=== PATIENT | male | born 1990 | race Caucasian/White ===

== ENCOUNTER 2017-06-13 14:02 | Inpatient (IN) | payer MEDICAID, OTHER ==
[2017-06-13 14:19] VITALS: BMI 35.6
[2017-06-13 14:55] LABS: BASO # 0.1 K/uL (0.0-0.2); BASO % 1.2 % (0.0-2.0); EOS # 0.1 K/uL (0.0-0.7); EOS % 1.2 % (0.0-4.0); HEMATOCRIT 44.7 % (35.0-51.0); LYMPH # 2.4 K/uL (1.0-4.3); LYMPH % 28.5 % (20.0-40.0); MEAN CELL VOLUME 82.7 fL (80.0-94.0); MEAN CORPUSCULAR HEMOGLOBIN 26.7 pg (27.0-31.0); MEAN CORPUSCULAR HGB CONC 32.3 g/dL (33.0-37.0); MONO # 0.7 K/uL (0.0-0.8); NRBC % 0.1 % (0.0-2.0); RED CELL DISTRIBUTION WIDTH 14.9 % (11.5-14.5); WHITE BLOOD COUNT 8.3 K/uL (4.8-10.8)
[2017-06-13 15:01] LABS: RBC URINE < 1 /hpf (0-3); URINE BILIRUBIN NEGATIVE (NEGATIVE); URINE BLOOD NEGATIVE (NEGATIVE); URINE COLOR Straw (YELLOW); URINE GLUCOSE (UA) NORMAL (Normal); URINE KETONE NEGATIVE (NEGATIVE); URINE LEUKOCYTE ESTERASE NEG Leu/uL (Negative); URINE PROTEIN NEGATIVE (NEGATIVE); URINE UROBILINOGEN NORMAL mg/dL (0.2-1.0); WBC URINE 1 /hpf (0-5)
[2017-06-13 15:12] LABS: ALCOHOL SERUM < 10 mg/dl (0-10); ALKALINE PHOSPHATASE 64 U/L (38-126); ALT/SGPT 47 U/L (21-72); AST/SGOT 31 U/L (17-59); BILIRUBIN,TOTAL 0.6 mg/dL (0.2-1.3); BLOOD UREA NITROGEN 8 mg/dL (9-20); CALCIUM 8.4 mg/dl (8.6-10.4); CARBON DIOXIDE 25 mmol/L (22-30); CHLORIDE 106 mmol/L (98-107); GFR AFRICAN-AMERICAN > 60; GLUCOSE,RANDOM 72 mg/dL (75-110); POTASSIUM 3.6 mmol/L (3.6-5.2); SODIUM 136 mmol/L (132-148); TOTAL PROTEIN 8.4 g/dL (6.3-8.3)
[2017-06-13 15:15] LABS: ALB/GLOB RATIO 1.2 (1.0-2.1)
--- NOTE | 2017-06-13 16:06 | C.PDOC ---
History Of Present Illness Girish Benavides is a 26 year old male, with a past medical history of depression and HTN, who presents to the emergency department for suicidal ideation onset for x1 day. He reports feeling emotional after having spoken to his dad and state he took DXM and opiates. Patient tried to overdose last year admits to have made several attempts. He is currently taking lisinopril for his high blood pressure. He denies any nausea, vomit, fever, chills, chest pain or abdominal pain PMD: None provided. Time Seen by Provider: 06/13/17 14:25 Chief Complaint (Nursing): Psychiatric Evaluation History Per: Patient History/Exam Limitations: no limitations Onset/Duration Of Symptoms: Days (x1) Current Symptoms Are (Timing): Still Present Pain Scale Rating Of: 0 Associated Symptoms: Suicidal Thoughts, Suicidal Plan Past Medical History Reviewed: Historical Data, Nursing Documentation, Vital Signs Vital Signs: Last Vital Signs Temp 98 F 06/13/17 15:55 Pulse 87 06/13/17 15:55 Resp 20 06/13/17 15:55 BP 148/78 06/13/17 15:55 Pulse Ox 100 06/13/17 16:13 - Medical History PMH: Depression, HTN Surgical History: No Surg Hx Family History: States: Unknown Family Hx - Social History Hx Tobacco Use: Yes (heavy smoker >10 cigarettes daily) Hx Alcohol Use: Yes Hx Substance Use: Yes (cocaine) - Immunization History Hx Tetanus Toxoid Vaccination: Yes Hx Influenza Vaccination: Yes Hx Pneumococcal Vaccination: Yes Review Of Systems Except As Marked, All Systems Reviewed And Found Negative. Constitutional: Negative for: Fever, Chills Gastrointestinal: Negative for: Nausea, Vomiting, Abdominal Pain Psych: Positive for: Suicidal ideation Physical Exam - Physical Exam Skin: Normal Color, Warm, Dry Head: Atraumatic, Normacephalic Neck: Normal, Normal ROM, Supple Cardiovascular: Rhythm Regular Respiratory: Normal Breath Sounds, No Accessory Muscle Use Gastrointestinal/Abdominal: Soft, No Tenderness, No Guarding, No Rebound Extremity: Normal ROM, No Deformity, No Swelling Neurological/Psych: Oriented x3, Normal Speech ED Course And Treatment - Laboratory Results Result Diagrams: 06/13/17 14:52 06/13/17 14:52 O2 Sat by Pulse Oximetry: 100 (RA) Pulse Ox Interpretation: Normal Medical Decision Making Medical Decision Making: Initial Impression: Suicidal ideation Initial Plan: --1:1 Observation --AED Crisis evaluation Disposition Counseled Patient/Family Regarding: Studies Performed, Diagnosis - Disposition Disposition: HOSPITALIZED Disposition Time: 16:41 Condition: STABLE - Clinical Impression Clinical Impression: Depression Decision To Admit - Pt Status Changed To: Hospital Disposition Of: Inpatient - Admit Certification Admit to Inpatient:: After my assessment, the patient will require hospitalization for at least two midnights. This is because of the severity of symptoms shown, intensity of services needed, and/or the medical risk in this patient being treated as an outpatient. - InPatient: Physician Admission Certification: I certify that this patient requires 2 or more midnights of care for the following reason:: needs inpatient psych management - . Bed Request Type: Psychiatry Patient Diagnosis: Depression
--- NOTE | 2017-06-13 17:25 | PCM.BM ---
<Faviola Sawyer - Last Filed: 06/13/17 17:24> Treatment Plan Problems - Problems identified on initial assessmt Depression Date Initiated: 06/13/17 Time Initiated: 17:24 Assessment reference: NA Status: Active Suicidal Ideation Date Initiated: 06/13/17 Time Initiated: 17:24 Assessment reference: NA Status: Active Treatment assets and liabiliti Patient Assests: adapts well, cooperative, self-reliant, ADL independent, negotiates basic needs Patient Liabilities: live alone, substance abuse - Milieu Protocol Maintain good personal hygiene: daily Encourage regular showers, daily Remind patient to perform daily oral care Conduct patient checks and document Observation sheet: Q15 minutes Maintain personal safety: every shift Educate patient to report safety concerns to staff, every shift Monitor environment for contraband/sharps Medication safety: Monitor for expected outcome, potential side effects: every shift, Assess barriers to learning: every shift, Assess readiness for medication education: every shift <JuanMelly - Last Filed: 06/14/17 23:50> - Diagnosis (1) Depression Status: Acute Interventions: 06/14/17 23:49 * Assess/adjust medications daily and /or as needed * See patient on an individual basis 7x/week to assess symptoms of depression * Monitor for side effects & effectiveness of medications * (2) Opioid use disorder, severe, dependence Status: Acute Interventions: 06/14/17 23:49 * Assess 7x/week regarding severity of withdrawal * Educate regarding risks, benefits, side effects and alternatives of medications * Use Motivational Interviewing for abstinence * Use CBT for relapse prevention * Medication management for withdrawal symptoms * Encourage medication assisted treatment * (3) Alcohol use disorder, severe, dependence Status: Acute Interventions: 06/14/17 23:50 * Assess 7x/week regarding severity of withdrawal * Educate regarding risks, benefits, side effects and alternatives of medications * Use Motivational Interviewing for abstinence * Use CBT for relapse prevention * Medication management for withdrawal symptoms * Encourage medication assisted treatment *
--- NOTE | 2017-06-14 10:22 | PCM.PSYCH ---
Initial Psychiatric Evaluation - Initial Psychiatric Evaluation Type of Admission: Voluntary Legal Status: Capacity Chief Complaint (in patient's own words): "I'm feeling alright" History of Present Illness and Precipitating Events: The pt is seen, chart reviewed, case discussed with staff Pt is a 26y/o single male who lives with his father. Pt has no children. Pt is here for depression and suicidal ideations with a plan to jump off a bridge. Pt states that he has been feeling depressed for the past 2 weeks. He has a history of depression, anxiety, PTSD. He has a psychiatrist. Pt drinks 1 liter of alcohol a day for the past 5 years and his last drink was 3 weeks ago. He uses 3g of cocaine a day for the 3 years and his last use was 3 weeks ago. Pt uses 5-10 pills of oxycodone a day for past year and his last use was yesterday. He uses 1 tab of ecstasy a day for the past 3 years and his last use of 1 month ago. He reports that he smokes 1/2 pack a day for the past 2 years. Pt denies any other illicit drug use. He reports feelings of depression, anxiety , and suicidal ideations. He reports that he is sleep and appetite are normal. He denies homicidal ideations and paranoia. He was recently released from [facility] 2 days ago. He denies any AVH. PMHX: HTN Psychiatric HX: Anxiety, Depression, PTSD Current Medications: Active Medications Generic Name Dose Route Start Last Admin Trade Name Freq PRN Reason Stop Dose Admin Hydroxyzine HCl 50 mg 06/13/17 17:37 06/13/17 18:28 Atarax PO 50 mg Q6 PRN Administration Anxiety Ibuprofen 600 mg 06/13/17 17:37 Motrin Tab PO Q6 PRN Pain, moderate (4-7) Lisinopril 40 mg 06/14/17 10:00 06/14/17 09:47 Zestril PO 40 mg DAILY KARINA Administration Sertraline HCl 50 mg 06/14/17 10:00 06/14/17 09:47 Zoloft PO 50 mg DAILY KARINA Administration Trazodone HCl 50 mg 06/13/17 17:37 Desyrel PO HS PRN Insomnia Past Psychiatric History - Past Psychiatric History Previous Treatment History: Inpatient Pertinent Medical Hx (Current Medical&Sleep Prob, Allergies): Allergies Allergy/AdvReac Type Severity Reaction Status Date / Time No Known Allergies Allergy Unverified 06/13/17 14:14 FLUoxetine [Fluoxetine HCl] 20 mg PO DAILY 06/13/17 FLUoxetine [Fluoxetine HCl] 20 mg PO DAILY 06/13/17 Lisinopril [Zestril] 40 mg PO DAILY 06/13/17 Review of Systems - Review of Systems All systems: reviewed and no additional remarkable complaints except - Psychiatric Psychiatric: Abnormal Sleep Pattern, Anxiety, Depression, Hopelessness, Suicidal Ideation Mental Status Examination - Personal Presentation Personal Presentation: Looks stated age - Affect Affect: Constricted, Depressed - Motor Activity Motor Activity: Calm - Reliability in Providing Information Reliability in Providing Information: Good - Speech Speech: Organized - Mood Mood: Depressed, Anxious - Formal Thought Process Formal Thought Process: No Impairment - Obsessions/Compulsions Obsessions: No Compulsions: No - Cognitive Functions Orientation: Person, Place, Situation, Time Sensorium: Alert Attention/Concentration: Attentive Abstract Thinking: [place] Estimate of Intelligence: Below average Judgement: Imparied, as evidence by: Poor judgement, Imparied, as evidence by: Lack of insight into illness Memory: Remote intact, as evidenced by: Ability to recall historical events - Risk Risk: Suicidal, Withdrawal, Diminished functioning DSM 5 DX - DSM 5 DSM 5 Diagnosis: Major depressive disorder recurrent severe without psychotic features Opioid use disorder severe Alcohol use disorder severe Cocaine use disorder severe - Recommended/Plan of Treatment Treatment Recommendations and Plan of Treatment: CBT Psychoeducation Supportive therapy, group therapy, individual therapy Zploft 50 mg PO daily Neurontin 100 mg by mouth 3 times a day Trazodone 50 mg by mouth daily at bedtime Clonidine when necessary Use [place] for abstinence HTN Continue prescribed meds - Smoking Cessation Smoking Cessation Initiated: No
--- NOTE | 2017-06-15 10:45 | PCM.PYCHPN ---
Psychiatric Progress Note - Psychiatric Progress Note Patient seen today, length of contact: 17 minutes Patient Chief Complaint: "I'm feeling a little depressed" Problems Identified/Issues Discussed: This patient was seen, chart reviewed, and case discussed with staff. Pt has a flat affect and soft speech pattern. He still reports feelings of depression and hopelessness. Pt reports suicidal ideations when he "thinks too much about his family" but denies homicidal ideations. Pt reports his appetite is still decreased and he slept "okay." Pt still reports feelings of anxiety but denies paranoia. Pt denies auditory and visual hallucinations. Pt has been attending groups and states they have been helping. Patient is compliant with medications and denies any side effects. Symptoms are improving but need more time to stabilize. Support and psychoeducation given. Medication Change: Yes Medical Record Reviewed: Yes Mental Status Examination - Cognitive Function Orientation: Person, Place, Situation, Time Memory: Intact Attention: WNL Concentration: Poor Association: WNL Fund of Knowledge: Poor - Mood Mood: Depressed, Anxious - Affect Affect: Constricted, Depressed - Speech Speech: Soft - Formal Thought Process Formal Thought Process: No Impairment - Suicidal Ideation Suicidal Ideation: No - Homicidal Ideation Homicidal Ideation: No Goal/Treatment Plan - Goal/Treatment Plan Need for Continued Stay: Severe depression anxiety, Severe functional impairment Progress Toward Problem(s) and Goals/Treatment Plan: CBT Psychoeducation Supportive therapy, group therapy, individual therapy Zoloft 50 mg PO daily Neurontin 100 mg by mouth 3 times a day Trazodone 50 mg by mouth daily at bedtime Clonidine when necessary Use [place] for abstinence HTN Continue prescribed meds - Smoking Cessation Smoking Cessation Initiated: No
--- NOTE | 2017-06-16 10:31 | PCM.PYCHPN ---
Psychiatric Progress Note - Psychiatric Progress Note Patient seen today, length of contact: 17 minutes Patient Chief Complaint: "I'm feeling a little depressed" Problems Identified/Issues Discussed: This patient was seen, chart reviewed, and case discussed with staff. Patient still reports depressed mood and feelings of worthlessness and hopelessness. Pt reports his appetite is still decreased and he still reports feelings of anxiety but denies auditory and visual hallucinations. Pt reports suicidal ideations when he "thinks too much about his family" but denies homicidal ideations. Pt has been attending groups and states they have been helping. Patient is compliant with medications and denies any side effects. Symptoms are improving but need more time to stabilize. Support and psychoeducation given. Medication Change: Yes (increase zoloft) Medical Record Reviewed: Yes Mental Status Examination - Cognitive Function Orientation: Person, Place, Situation, Time Memory: Intact Attention: WNL Concentration: Poor Association: WNL Fund of Knowledge: Poor - Mood Mood: Depressed, Anxious - Affect Affect: Constricted, Depressed - Speech Speech: Soft - Formal Thought Process Formal Thought Process: No Impairment - Suicidal Ideation Suicidal Ideation: No - Homicidal Ideation Homicidal Ideation: No Goal/Treatment Plan - Goal/Treatment Plan Need for Continued Stay: Severe depression anxiety, Severe functional impairment Progress Toward Problem(s) and Goals/Treatment Plan: CBT Psychoeducation Supportive therapy, group therapy, individual therapy Zploft 100 mg PO daily Neurontin 100 mg by mouth 3 times a day Trazodone 50 mg by mouth daily at bedtime Clonidine when necessary Use [place] for abstinence HTN Continue prescribed meds - Smoking Cessation Smoking Cessation Initiated: No
[2017-06-17 05:49] VITALS: RESP 20
--- NOTE | 2017-06-17 15:33 | PCM.PYCHPN ---
Psychiatric Progress Note - Psychiatric Progress Note Patient seen today, length of contact: 15 minutes Patient Chief Complaint: I'm feeling much better. Problems Identified/Issues Discussed: Patient seen, chart reviewed, case discussed with the staff. Issues related to illness and treatment were discussed with the patient. Reported compliant with treatment with no adverse effects. Feeling much better with the treatment. Aftercare discussed with the patient. At the time of evaluation, patient was awake alert oriented 3. Denied any delusions, no auditory or visual hallucinations, no suicidal ideations or homicidal ideations. Medical Problems: Hypertension Diagnostic Results: Reviewed DSM 5 Symptoms Update: Improving with treatment. Medication Change: No Medical Record Reviewed: Yes Mental Status Examination - Cognitive Function Orientation: Person, Place, Situation, Time Memory: Intact Attention: WNL Concentration: WNL Association: WN Fund of Knowledge: [facility] Decription of patient's judgement and insights: Fair - Mood Mood: Neutral - Affect Affect: Other (Appropriate) - Speech Speech: Soft - Formal Thought Process Formal Thought Process: No Impairment Psychotic Thoughts and Behaviors: None - Suicidal Ideation Suicidal Ideation: No - Homicidal Ideation Homicidal Ideation: No Goal/Treatment Plan - Goal/Treatment Plan Need for Continued Stay: Remain at risks for inpatient hospitalization, Discharge may exacerbated symptoms, Severe functional impairment Progress Toward Problem(s) and Goals/Treatment Plan: Improving with treatment. Patient education. Supportive therapy. CBT for relapse prevention Motivational interview for abstinence. Continue treatment as before. Patient wants to go to [facility] after discharge from the hospital for follow-up care. Estimated Date of D/C: 06/20/17 - Smoking Cessation Smoking Cessation Initiated: No
--- NOTE | 2017-06-18 16:44 | PCM.PYCHPN ---
Psychiatric Progress Note - Psychiatric Progress Note Patient seen today, length of contact: 15 minutes Patient Chief Complaint: "I'm better" Problems Identified/Issues Discussed: Patient was seen. Chart was reviewed important content noted. Nurse input received. Patient has no new complaints. No events overnight. Patient slept well and is eating well. Patient has remained in good clinical and behavioral control. Symptoms are improving, but needs more time to stabilize. Denies suicidal or homicidal ideations. Patient does not report hallucinations. No delusions elicited. No paranoia elicited. Patient is finding medications beneficial and would like to continue with treatment plan. Patient appreciated that treatment team is trying to help DSM 5 Symptoms Update: Major depressive disorder recurrent severe without psychotic features Opioid use disorder severe Alcohol use disorder severe Cocaine use disorder severe Medication Change: No Medical Record Reviewed: Yes Mental Status Examination - Cognitive Function Orientation: Person, Place, Situation, Time Memory: Intact Attention: WNL Concentration: Poor Association: WNL Fund of Knowledge: Poor - Mood Mood: Depressed, Anxious - Affect Affect: Constricted, Depressed - Speech Speech: Soft - Formal Thought Process Formal Thought Process: No Impairment Psychotic Thoughts and Behaviors: denied - Suicidal Ideation Suicidal Ideation: No - Homicidal Ideation Homicidal Ideation: No Goal/Treatment Plan - Goal/Treatment Plan Need for Continued Stay: Severe depression anxiety, Severe functional impairment Progress Toward Problem(s) and Goals/Treatment Plan: Continue current management and medications. Patient educated about risks, benefits, side effects & alternatives of meds. Pt verbalized understanding & agreed with the above.~ Therapy in milieu. Estimated Date of D/C: 06/20/17 - Smoking Cessation Smoking Cessation Initiated: Yes
[2017-06-19 06:05] VITALS: TEMP 98.4; O2SAT 98
--- NOTE | 2017-06-19 11:04 | PCM.PYCHPN ---
Psychiatric Progress Note - Psychiatric Progress Note Patient seen today, length of contact: 15 minutes Patient Chief Complaint: "I'm feeling better" Problems Identified/Issues Discussed: This patient was seen, chart reviewed, and case discussed with staff. Patient reports improvement in his mood and improvement in the feelings of worthlessness and hopelessness. He denies any suicidal ideations or homicidal ideations. Pt has been attending groups and states they have been helping. Patient is compliant with medications and denies any side effects. Symptoms are improving but need more time to stabilize. Support and psychoeducation given. Medication Change: No Medical Record Reviewed: Yes Mental Status Examination - Cognitive Function Orientation: Person, Place, Situation, Time Memory: Intact Attention: WNL Concentration: WNL Association: WNL Fund of Knowledge: WNL - Mood Mood: Anxious - Affect Affect: Constricted - Speech Speech: Soft - Formal Thought Process Formal Thought Process: No Impairment - Suicidal Ideation Suicidal Ideation: No - Homicidal Ideation Homicidal Ideation: No Goal/Treatment Plan - Goal/Treatment Plan Need for Continued Stay: Other Progress Toward Problem(s) and Goals/Treatment Plan: CBT Psychoeducation Supportive therapy, group therapy, individual therapy Zploft 100 mg PO daily Neurontin 100 mg by mouth 3 times a day Trazodone 50 mg by mouth daily at bedtime Clonidine when necessary Use [place] for abstinence HTN Continue prescribed meds Estimated Date of D/C: 06/20/17 - Smoking Cessation Smoking Cessation Initiated: No
[2017-06-19 15:56] VITALS: BP 122/80; PULSE 111
--- NOTE | 2017-06-20 10:19 | PCM.PYCHDC ---
Mental Status Examination - Mental Status Examination Orientation: Person, Place, Situation, Time Memory: Intact Mood: Neutral Affect: Constricted Speech: Soft Attention: WNL Concentration: WNL Association: WNL Fund of Knowledge: WNL Formal Thought Process: No Impairment Description of patient's judgement and insight: good, fair Psychotic Thoughts and Behaviors: denies any AVH Suicidal Ideation: No Current Homicidal Ideation?: No Discharge Summary - Discharge Note Reason for Hospitalization: The pt is seen, chart reviewed, case discussed with staff Pt is a 26y/o single male who lives with his father. Pt has no children. Pt is here for depression and suicidal ideations with a plan to jump off a bridge. Pt states that he has been feeling depressed for the past 2 weeks. He has a history of depression, anxiety, PTSD. He has a psychiatrist. Pt drinks 1 liter of alcohol a day for the past 5 years and his last drink was 3 weeks ago. He uses 3g of cocaine a day for the 3 years and his last use was 3 weeks ago. Pt uses 5-10 pills of oxycodone a day for past year and his last use was yesterday. He uses 1 tab of ecstasy a day for the past 3 years and his last use of 1 month ago. He reports that he smokes 1/2 pack a day for the past 2 years. Pt denies any other illicit drug use. He reports feelings of depression, anxiety , and suicidal ideations. He reports that he is sleep and appetite are normal. He denies homicidal ideations and paranoia. He was recently released from [facility] 2 days ago. He denies any AVH. Consultations:: List each consultation separately and include: 1. Reason for request. 2. Findings. 3. Follow-up Summary of Hospital Course include:: 1. Description of specific treatment plan utilized for patients during their course of treatmen. 2. Summarize the time- course for resolution of acute symptoms and/or regressed behaviors. 3. Describe issues identified and worked on during hospitalization. 4. Describe medication utilized. 5. Describe medical problems identified and treated. 6. Reassessment of suicide risk Summary of Hospital Course: During the course of his stay, patient (pt) started progressively improving and he no longer remained irritable, depressed, and paranoid. His mood and anxiety symptoms were improved and he started attending groups and meetings and started socializing. Patient denied any feelings of hopelessness, helplessness, and worthlessness, denied any problem with the sleep or appetite, denied suicidal ideation or homicidal ideation. Pt denied any auditory or visual hallucinations. Some changes were made in his current medications and patient was discharged on following medications. He tolerated these medications very well and denied any side effects. Pt is to attend rehab at [facility] in [place]. - Diagnosis (1) Depression Status: Acute (2) Opioid use disorder, severe, dependence Status: Acute (3) Alcohol use disorder, severe, dependence Status: Acute - Final Diagnosis (DSM 5) Condition upon Discharge: STABLE DSM 5: Major depressive disorder recurrent severe without psychotic features Opioid use disorder severe Alcohol use disorder severe Cocaine use disorder severe Disposition: HOME/ ROUTINE Follow-up Treatment Plan: Education: Pt was educated and counseled about the risks and benefits of taking and not taking medications. Pt was educated and counseled about the risks of drinking and abusing drugs. Pt was educated and counseled to go to the ER or call 911 if pt develop suicidal ideation or homicidal ideation, worsening of symptoms or severe side effects of the meds. Prescriptions/Medication Reconciliation: Lisinopril [Zestril] 40 mg PO DAILY #30 tab Sertraline [Zoloft] 100 mg PO DAILY #30 tab traZODone [Desyrel] 50 mg PO HS PRN #30 tab PRN Reason: Insomnia - Smoking Cessation Smoking Cessation Medication prescribed: No - Antipsychotic Medications Pt discharged on 2 or more routine antipsychotic medications: No
== END 2017-06-20 13:15 | disposition home or self-care (01) | DRG 430 ==
LOC: C.ER 14:02 → C.5E 16:43
PROC: GZHZZZZ Group Psychotherapy (ICD-10-PCS; principal; 2017-06-13)
PROC: GZ58ZZZ Individual Psychotherapy, Cognitive-Behavioral (ICD-10-PCS; 2017-06-13)
PROC: GZ56ZZZ Individual Psychotherapy, Supportive (ICD-10-PCS; 2017-06-13)
DX: F33.2 Major depressive disorder, recurrent severe without psychotic features (principal); F11.20 Opioid dependence, uncomplicated; R45.851 Suicidal ideations; F14.20 Cocaine dependence, uncomplicated; F10.20 Alcohol dependence, uncomplicated; I10 Essential (primary) hypertension; F17.210 Nicotine dependence, cigarettes, uncomplicated; F43.10 Post-traumatic stress disorder, unspecified; Z79.899 Other long term (current) drug therapy

== ENCOUNTER 2017-11-29 16:51 | Inpatient (IN) | payer MEDICAID ==
[2017-11-29 16:52] VITALS: BMI 35.6
[2017-11-29] MEDS ORDERED: Sodium Chloride 0.9% 1,000 ML IV ONE (18:16)
[2017-11-29 18:41] LABS: BASO # 0.1 K/uL (0.0-0.2); EOS # 0.2 K/uL (0.0-0.7); EOS % 2.7 % (0.0-4.0); HEMOGLOBIN 15.6 g/dL (12.0-18.0); LYMPH # 3.8 K/uL (1.0-4.3); LYMPH % 43.3 % (20.0-40.0); MEAN CELL VOLUME 81.7 fL (80.0-94.0); MEAN CORPUSCULAR HGB CONC 33.1 g/dL (33.0-37.0); MEAN PLATELET VOLUME 9.2 fL (7.2-11.7); MONO # 0.8 K/uL (0.0-0.8); MONO % 9.4 % (0.0-10.0); NEUT # 3.8 K/uL (1.8-7.0); NEUT % 43.6 % (50.0-75.0); NRBC % 0.1 % (0.0-2.0); RBC 5.78 Mil/uL (4.40-5.90); RED CELL DISTRIBUTION WIDTH 14.2 % (11.5-14.5); WHITE BLOOD COUNT 8.7 K/uL (4.8-10.8)
[2017-11-29 18:59] LABS: ACETAMINOPHEN < 10.0 ug/mL (10.0-30.0); ALB/GLOB RATIO 1.2 (1.0-2.1); ALBUMIN 4.9 g/dL (3.5-5.0); ALT/SGPT 46 U/L (21-72); AST/SGOT 36 U/L (17-59); BLOOD UREA NITROGEN 20 mg/dL (9-20); CALCIUM 9.8 mg/dl (8.6-10.4); GFR AFRICAN-AMERICAN > 60; GFR NON-AFRICAN AMERICAN > 60; SALICYLATE < 1.0 mg/dL 1
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
[2017-11-29 19:55] LABS: BARBITURATES, UR NEGATIVE (NEGATIVE); BENZODIAZEPINES, UR NEGATIVE (NEGATIVE); OPIATES, UR NEGATIVE (NEGATIVE)
[2017-11-29 20:07] LABS: PHENCYCLIDINE, UR POSITIVE (NEGATIVE)
[2017-11-29 22:04] VITALS: O2SAT 96
--- NOTE | 2017-11-29 23:12 | PCM.BM ---
<Darnell Fan - Last Filed: 11/29/17 23:10> Treatment Plan Problems - Problems identified on initial assessmt DEPRESSION Date Initiated: 11/29/17 Time Initiated: 22:50 Assessment reference: NA Status: Active SUBSTANCE ABUSE Date Initiated: 11/29/17 Time Initiated: 22:50 Assessment reference: NA Status: Active Treatment assets and liabiliti Patient Assests: adapts well, cooperative, self-reliant, ADL independent, negotiates basic needs Patient Liabilities: financial problems, poor support system, substance abuse - Milieu Protocol Maintain good personal hygiene: daily Encourage regular showers, daily Remind patient to perform daily oral care, daily Assist patient to perform ADL's Maintain personal safety: every shift Educate patient to report safety concerns to staff, every shift Monitor environment for contraband/sharps Medication safety: Monitor for expected outcome, potential side effects: every shift, Assess barriers to learning: every shift, Assess readiness for medication education: every shift <Sandra Valerio - Last Filed: 12/04/17 12:46> - Diagnosis (1) Depression Status: Acute Interventions: 12/04/17 12:46 * Assess/adjust medications daily and /or as needed * See patient on an individual basis 7x/week to assess symptoms of depression * Monitor for side effects & effectiveness of medications * (2) Alcohol use disorder, severe, dependence Status: Acute Interventions: 12/04/17 12:46 * Assess 7x/week regarding severity of withdrawal * Educate regarding risks, benefits, side effects and alternatives of medications * Use Motivational Interviewing for abstinence * Use CBT for relapse prevention * Medication management for withdrawal symptoms * Encourage medication assisted treatment * <Linda Hussein - Last Filed: 12/04/17 16:35> Family Contact Family involvement: Patient does not wish Family/SO involvement Family contact: Patient declines to allow family contact at present - Goals for Treatment Patient goals for treatment: "I want to go to [facility] rehab." Discharge/Continuing Care - Education Needs Education Needs: Patient Medication, Patient Diagnosis/Disease Process, Patient Coping Skills - Discharge Discharge Criteria: Free of Suicidal thoughts, Normal sleep pattern, Ability to care for self, No longer exhibiting s/s of withdrawal, Reduction of target symptoms Discharge to:: Substance Abuse Rehab - Treatment Team Participation Discussed with Family/SO: No Was Patient/Family/SO present at Treatment Team Meeting: Yes
[2017-11-30 12:52] LABS: HEPATITIS B SURFACE AG Negative (NEGATIVE)
[2017-11-30 12:58] LABS: HEPATITIS A IGM NEGATIVE (NEGATIVE); HEPATITIS B CORE AB NEGATIVE (NEGATIVE)
[2017-11-30 13:09] LABS: HEPATITIS C ANTIBODY NEGATIVE (NEGATIVE)
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
--- NOTE | 2017-11-30 14:26 | CARD ---
APPROVED REPORT EKG Measurement Heart [id number] <Conclusion> Sinus tachycardia Possible Left atrial enlargement Borderline ECG
[2017-12-01] MEDS ORDERED: Pneumococcal 23-Valent Vaccine IM ONE (10:00)
--- NOTE | 2017-12-01 14:29 | PCM.PYCHPN ---
Psychiatric Progress Note - Psychiatric Progress Note Patient seen today, length of contact: 15 mins Patient Chief Complaint: "I feel depressed still." Problems Identified/Issues Discussed: Patient seen and evaluated, chart reviewed, and discussed with nurse. Patient is still feeling depressed and still having suicidal ideations but has no plan. Patient states if he feels overwhelmed he will lets the nurses know. Patient said he did not sleep well last night. Patient said he is eating fine. Patient participates in group activities throughout the day. He is taking medications and denies any side effects. Symptoms need more time to improve. Need more time for stabilization. Supportive given, CBT and [place] used briefly After care discussed. Medical Record Reviewed: Yes Mental Status Examination - Cognitive Function Orientation: Person, Place, Time Memory: Intact Attention: WNL Concentration: WNL - Mood Mood: Depressed - Affect Affect: Flat - Speech Speech: Appropriate - Formal Thought Process Formal Thought Process: No Impairment - Suicidal Ideation Suicidal Ideation: Yes Plan: no plan - Homicidal Ideation Homicidal Ideation: No Goal/Treatment Plan - Goal/Treatment Plan Need for Continued Stay: Severe depression anxiety, Discharge may exacerbated symptoms, Severe functional impairment Progress Toward Problem(s) and Goals/Treatment Plan: Lexapro and Seroquel As needed medications Attend groups and activities Supportive therapy and psychoeducation [place] for abstinence CBT for relapse prevention Encourage MAT Refer to rehab or IOP Attend self-help groups as well
[2017-12-02] MEDS ORDERED: Pneumococcal 23-Valent Vaccine IM ONE (10:00)
--- NOTE | 2017-12-02 12:21 | PCM.PYCHPN ---
Psychiatric Progress Note - Psychiatric Progress Note Patient seen today, length of contact: 15 mins Patient Chief Complaint: I'm feeling depressed.' Problems Identified/Issues Discussed: Patient seen and evaluated, chart reviewed and discussed with the nurse. Patient reports depressed mood and remained isolated and withdrawn. He reports poor sleep but reports improvement in his appetite. He is taking the medications and denies any side effects. Symptoms are improving and she needs more time for stabilization Supportive therapy and psychoeducation were given. Medical Record Reviewed: Yes Mental Status Examination - Cognitive Function Orientation: Person, Place, Time Memory: Intact Attention: WNL Concentration: WNL - Mood Mood: Depressed - Affect Affect: Flat - Speech Speech: Appropriate - Formal Thought Process Formal Thought Process: No Impairment - Suicidal Ideation Suicidal Ideation: Yes - Homicidal Ideation Homicidal Ideation: No Goal/Treatment Plan - Goal/Treatment Plan Need for Continued Stay: Severe depression anxiety, Discharge may exacerbated symptoms, Severe functional impairment Progress Toward Problem(s) and Goals/Treatment Plan: Lexapro and Seroquel As needed medications Attend groups and activities Supportive therapy and psychoeducation [place] for abstinence CBT for relapse prevention Encourage MAT Refer to rehab or IOP Attend self-help groups as well
--- NOTE | 2017-12-03 13:48 | PCM.PYCHPN ---
Psychiatric Progress Note - Psychiatric Progress Note Patient seen today, length of contact: 16 mins Patient Chief Complaint: I want to be on my old medication Problems Identified/Issues Discussed: Patient seen and evaluated, chart reviewed and discussed with the nurse. Patient reports some improvement in his mood but he remained isolated and withdrawn. He reports some improvement in sleep. He is requesting to put on his old medication prozac. He is taking medications and denies any side effects. Symptoms are improving and she needs more time for stabilization Supportive therapy and psychoeducation were given. Medication Change: Yes (DC Lexapro, start Prozac) Medical Record Reviewed: Yes Mental Status Examination - Cognitive Function Orientation: Person, Place, Time Memory: Intact Attention: WNL Concentration: Poor Association: WNL Fund of Knowledge: Poor - Mood Mood: Depressed - Affect Affect: Flat - Speech Speech: Appropriate - Formal Thought Process Formal Thought Process: No Impairment - Suicidal Ideation Suicidal Ideation: No - Homicidal Ideation Homicidal Ideation: No Goal/Treatment Plan - Goal/Treatment Plan Need for Continued Stay: Severe depression anxiety, Discharge may exacerbated symptoms, Severe functional impairment Progress Toward Problem(s) and Goals/Treatment Plan: DC Lexapro start Prozac Seroquel As needed medications Attend groups and activities Supportive therapy and psychoeducation [place] for abstinence CBT for relapse prevention Encourage MAT Refer to rehab or IOP Attend self-help groups as well
--- NOTE | 2017-12-04 11:50 | PCM.PYCHPN ---
Psychiatric Progress Note - Psychiatric Progress Note Patient seen today, length of contact: 17 min Patient Chief Complaint: "I am a little better" Problems Identified/Issues Discussed: The pt is seen, chart reviewed, case discussed with staff. The pt is compliant with medications and reports no side-effects. Symptoms are improving but needs more time to stabilize. Still using too many prn meds, anxious and somewhat depressed Denies SI After care discussed, support and psychoeducation given. Medication Change: No Medical Record Reviewed: Yes Mental Status Examination - Cognitive Function Orientation: Person, Place, Time Memory: Intact Attention: WNL Concentration: Poor Association: WNL Fund of Knowledge: Poor - Mood Mood: Depressed - Affect Affect: Flat - Speech Speech: Appropriate - Formal Thought Process Formal Thought Process: No Impairment - Suicidal Ideation Suicidal Ideation: No - Homicidal Ideation Homicidal Ideation: No Goal/Treatment Plan - Goal/Treatment Plan Need for Continued Stay: Discharge may exacerbated symptoms, Severe functional impairment Progress Toward Problem(s) and Goals/Treatment Plan: Prozac and Seroquel As needed medications Attend groups and activities Supportive therapy and psychoeducation [place] for abstinence CBT for relapse prevention Encourage MAT Refer to rehab or IOP Attend self-help groups as well
--- NOTE | 2017-12-05 12:36 | PCM.PYCHPN ---
Psychiatric Progress Note - Psychiatric Progress Note Patient seen today, length of contact: 17 min Patient Chief Complaint: "I couldn't sleep" Problems Identified/Issues Discussed: The pt is seen, chart reviewed, case discussed with staff. Support and psychoeducation given, CBT and [place] used briefly No new symptoms reported, improving slowly and needs more time No SEs from medications, risks discussed. After care discussed - will go to [facility] Sleep hygine discussed, incl. meds Medication Change: Yes (increase seroquel ) Medical Record Reviewed: Yes Mental Status Examination - Cognitive Function Orientation: Person, Place, Time Memory: Intact Attention: WNL Concentration: Poor Association: WNL Fund of Knowledge: Poor - Mood Mood: Depressed - Affect Affect: Flat - Speech Speech: Appropriate - Formal Thought Process Formal Thought Process: No Impairment - Suicidal Ideation Suicidal Ideation: No - Homicidal Ideation Homicidal Ideation: No Goal/Treatment Plan - Goal/Treatment Plan Need for Continued Stay: Discharge may exacerbated symptoms, Severe functional impairment Progress Toward Problem(s) and Goals/Treatment Plan: Prozac and Seroquel As needed medications Attend groups and activities Supportive therapy and psychoeducation [place] for abstinence CBT for relapse prevention Encourage MAT Refer to rehab or IOP Attend self-help groups as well
[2017-12-06 06:25] VITALS: RESP 18
[2017-12-06] MEDS ORDERED: Vitamins A & D Oint UD Foilpak TOP SCH (16:00)
[2017-12-06] MEDS ORDERED: Vitamins A & D Oint UD Foilpak TOP PRN (16:25)
--- NOTE | 2017-12-06 16:55 | PCM.PYCHPN ---
Psychiatric Progress Note - Psychiatric Progress Note Patient seen today, length of contact: 17 min Patient Chief Complaint: "I am anxious" Problems Identified/Issues Discussed: The pt is seen, chart reviewed, case discussed with staff. The pt is compliant with medications and reports no side-effects. Risks of DXM discussed, [place] used Symptoms are improving but needs more time to stabilize. Still somewhat depressed and anxious After care discussed, support and psychoeducation given. Will be admitted to [facility] tomorrow Medication Change: No Medical Record Reviewed: Yes Mental Status Examination - Cognitive Function Orientation: Person, Place, Time Memory: Intact Attention: WNL Concentration: Poor Association: WNL Fund of Knowledge: Poor - Mood Mood: Depressed - Affect Affect: Flat - Speech Speech: Appropriate - Formal Thought Process Formal Thought Process: No Impairment - Suicidal Ideation Suicidal Ideation: No - Homicidal Ideation Homicidal Ideation: No Goal/Treatment Plan - Goal/Treatment Plan Need for Continued Stay: Discharge may exacerbated symptoms, Severe functional impairment Progress Toward Problem(s) and Goals/Treatment Plan: Prozac and Seroquel As needed medications Attend groups and activities Supportive therapy and psychoeducation [place] for abstinence CBT for relapse prevention Encourage MAT Refer to rehab or IOP Attend self-help groups as well Estimated Date of D/C: 12/07/17
[2017-12-07 06:28] VITALS: BP 113/67; PULSE 91; TEMP 97.4
--- NOTE | 2017-12-07 08:46 | PCM.PYCHDC ---
Mental Status Examination - Mental Status Examination Orientation: Person, Place, Situation, Time Memory: Intact Mood: Anxious Affect: Constricted Speech: Appropriate Attention: WNL Concentration: Poor Association: WNL Fund of Knowledge: WNL Formal Thought Process: No Impairment Suicidal Ideation: No Current Homicidal Ideation?: No Discharge Summary - Discharge Note Reason for Hospitalization: Feeling suicidal Consultations:: List each consultation separately and include: 1. Reason for request. 2. Findings. 3. Follow-up Summary of Hospital Course include:: 1. Description of specific treatment plan utilized for patients during their course of treatmen. 2. Summarize the time- course for resolution of acute symptoms and/or regressed behaviors. 3. Describe issues identified and worked on during hospitalization. 4. Describe medication utilized. 5. Describe medical problems identified and treated. 6. Reassessment of suicide risk Summary of Hospital Course: He is seen, chart reviewed and case discussed again. On admission: Patient is a 27 year old male with a past medical history of depression, HTN, anxiety, and PTSD presents to the ED with suicidal ideations. Patient says he feels like he does not fit into this world, and therefore tried to harm himself, but he is happy to be alive and wants to get clean and help others. Patient has a psychiatrist he sees on his own. Patient has been to the psych unit in various locations in the past. He was admitted once before at [facility] in June of 2017. Patient says he feels guilty about his substance abuse problem and about his sexuality. Patient also complains of decreased sleep , decreased concentration, and decreased energy. Patient reports being on a drug abuse binge for the past 3 months. For the past 3 months, the patient has been using 3g of cocaine intranasally, 20-40 DXM pills , and 1 L of alcohol a day. He initially started using drugs and alcohol 5-6 years ago. Patient is homeless. Patient used to live with his uncle but because of the patient's substance abuse problem and sexual orientation, patient was asked to leave. Later the patient was living in a long-term but is now homeless. Patient was diagnosed with PTSD by his psychiatrist bc of past abuses. Patient states he has participated in one rehab program with the [facility] in [place]. Patient expresses interests in again.. Detox Hx: 0 Rehab Hx: [facility] (once) Medical Hx: Depression, HTN, Anxiety, PTSD Surgical Hx: denies Fam Hx: biological mother had Schizophrenia Allergies: no known allergies Hospital course: The pt was admitted and started on treatment with psychotherapy, support, psychoeducation and medications. OK and CBT used. The pt attended groups and activities, as well as milieu therapy. All the risks and benefits of medications are discussed and the patient understood and agreed. The pt improved with the treatments provided. After care discussed with the patient. He will attend [facility] in [place]. - Final Diagnosis (DSM 5) Condition upon Discharge: IMPROVED DSM 5: Major Depressive Disorder Alcohol Use Disorder, Severe Cocaine Use Disorder, Severe Dextromet. use d/ - severe Disposition: HOME/ ROUTINE Follow-up Treatment Plan: Continue below medications after discharge. Follow after care plan as discussed. Use relapse prevention skills Return to ER or call 911 if suicidal, homicidal or symptoms relapse. Stay away from stress, alcohol and drugs. See primary doctor regularly and get labs. Prescriptions/Medication Reconciliation: amLODIPine [Norvasc] 10 mg PO DAILY #30 tab FLUoxetine [Prozac] 20 mg PO DAILY #30 cap hydrOXYzine HCl [Atarax] 50 mg PO DAILY PRN #30 tab PRN Reason: Anxiety Lisinopril [Zestril] 40 mg PO DAILY #30 tab QUEtiapine [SEROquel] 200 mg PO HS #30 tab traZODone [Desyrel] 100 mg PO HS PRN #30 tab PRN Reason: Insomnia - Smoking Cessation Smoking Cessation Medication prescribed: No - Antipsychotic Medications Pt discharged on 2 or more routine antipsychotic medications: No
== END 2017-12-07 11:00 | disposition home or self-care (01) | DRG 426 ==
LOC: C.ER 16:51 → C.5E 22:05
PROVIDERS: ADMIT Psychiatry & Neurology Psychiatry; ATTEND Psychiatry & Neurology Psychiatry
PROC: GZHZZZZ Group Psychotherapy (ICD-10-PCS; principal; 2017-11-29)
PROC: HZ52ZZZ Individual Psychotherapy for Substance Abuse Treatment, Cognitive-Behavioral (ICD-10-PCS; 2017-11-29)
PROC: GZ58ZZZ Individual Psychotherapy, Cognitive-Behavioral (ICD-10-PCS; 2017-11-29)
PROC: GZ56ZZZ Individual Psychotherapy, Supportive (ICD-10-PCS; 2017-11-29)
PROC: HZ59ZZZ Individual Psychotherapy for Substance Abuse Treatment, Supportive (ICD-10-PCS; 2017-11-29)
PROC: HZ56ZZZ Individual Psychotherapy for Substance Abuse Treatment, Psychoeducation (ICD-10-PCS; 2017-11-29)
PROC: HZ42ZZZ Group Counseling for Substance Abuse Treatment, Cognitive-Behavioral (ICD-10-PCS; 2017-11-29)
PROC: HZ46ZZZ Group Counseling for Substance Abuse Treatment, Psychoeducation (ICD-10-PCS; 2017-11-29)
DX: F32.9 Major depressive disorder, single episode, unspecified (principal); F14.20 Cocaine dependence, uncomplicated; F10.20 Alcohol dependence, uncomplicated; F43.10 Post-traumatic stress disorder, unspecified; I10 Essential (primary) hypertension; Z59.0 Homelessness; F41.9 Anxiety disorder, unspecified; R45.851 Suicidal ideations; G47.9 Sleep disorder, unspecified

== ENCOUNTER 2017-12-27 12:11 | Inpatient (IN) | payer MEDICAID ==
[2017-12-27 12:11] VITALS: BMI 35.6
[2017-12-27 13:03] LABS: BASO # 0.1 K/uL (0.0-0.2); EOS # 0.2 K/uL (0.0-0.7); EOS % 3.6 % (0.0-4.0); HEMOGLOBIN 15.2 g/dL (12.0-18.0); LYMPH # 2.2 K/uL (1.0-4.3); MEAN CELL VOLUME 81.3 fL (80.0-94.0); MEAN CORPUSCULAR HEMOGLOBIN 27.2 pg (27.0-31.0); MEAN CORPUSCULAR HGB CONC 33.5 g/dL (33.0-37.0); MONO # 0.6 K/uL (0.0-0.8); MONO % 9.5 % (0.0-10.0); NEUT # 3.5 K/uL (1.8-7.0); NEUT % 52.9 % (50.0-75.0); NRBC % 0.1 % (0.0-2.0); RBC 5.58 Mil/uL (4.40-5.90); RED CELL DISTRIBUTION WIDTH 14.6 % (11.5-14.5); WHITE BLOOD COUNT 6.6 K/uL (4.8-10.8)
[2017-12-27 13:20] LABS: ACETAMINOPHEN < 10.0 ug/mL (10.0-30.0); SALICYLATE < 1.0 mg/dL 1
[2017-12-27 13:22] LABS: ALB/GLOB RATIO 1.5 (1.0-2.1); ALT/SGPT 47 U/L (21-72); AST/SGOT 39 U/L (17-59); BLOOD UREA NITROGEN 13 mg/dL (9-20); CALCIUM 9.4 mg/dl (8.6-10.4); GFR AFRICAN-AMERICAN > 60; GFR NON-AFRICAN AMERICAN > 60
[2017-12-27 13:35] LABS: SQUAMOUS EPITHIAL < 1 /hpf (0-5); URINE BILIRUBIN NEGATIVE (NEGATIVE); URINE BLOOD NEGATIVE (NEGATIVE); URINE CLARITY Hazy (Clear); URINE COLOR Yellow (YELLOW); URINE GLUCOSE (UA) NORMAL (Normal); URINE LEUKOCYTE ESTERASE NEG Leu/uL (Negative); URINE PROTEIN 1+ mg/dL (NEGATIVE); URINE UROBILINOGEN NORMAL mg/dL (0.2-1.0)
[2017-12-27 13:40] LABS: BARBITURATES, UR NEGATIVE (NEGATIVE); BENZODIAZEPINES, UR NEGATIVE (NEGATIVE); OPIATES, UR NEGATIVE (NEGATIVE)
[2017-12-27 14:02] LABS: PHENCYCLIDINE, UR POSITIVE (NEGATIVE)
--- NOTE | 2017-12-27 14:23 | C.PDOC ---
History Of Present Illness 27-year-old male, presents to the emergency department with complaints of suicide attempt. Patient took 30 tablets of Coricidin. Patient denies any HI. No other complaints at this time. He was discharged from [facility] yesterday, for similar presentation. Time Seen by Provider: 12/27/17 12:34 Chief Complaint (Nursing): Psychiatric Evaluation History Per: Patient History/Exam Limitations: no limitations Current Symptoms Are (Timing): Still Present Suicide/Self Injury Attempted (Context): Ingestion Modifying Factor(s): Other Associated Symptoms: Suicidal Plan Past Medical History Reviewed: Historical Data, Nursing Documentation, Vital Signs Vital Signs: Last Vital Signs Temp 97.8 F 12/27/17 12:19 Pulse 120 H 12/27/17 12:19 Resp 18 12/27/17 12:19 BP 132/81 12/27/17 12:19 Pulse Ox 99 12/27/17 18:00 - Medical History PMH: Depression, HTN, Post Traumatic Stress Disorder Denies: Hepatitis, HIV - [facility] GROUP UNDER SHERIFF FOR SUBSTANCE ABUSE TREATMENT, PSYCHOEDUCATION (11/29/17) GROUP UNDER SHERIFF FOR SUBSTANCE ABUSE, COGNITIVE BEHAVIORAL (11/29/17) GROUP PSYCHOTHERAPY (11/29/17) INDIV PSYCHOTHERAPY FOR SUBSTANCE ABUSE TREATMENT, SUPPORT (11/29/17) INDIV PSYCHOTHERAPY FOR SUBSTANCE ABUSE, COGNITIV BEHAVIORAL (11/29/17) INDIV PSYCHOTHERAPY FOR SUBSTANCE ABUSE, PSYCHOEDUCATION (11/29/17) INDIVIDUAL PSYCHOTHERAPY, COGNITIVE-BEHAVIORAL (11/29/17) INDIVIDUAL PSYCHOTHERAPY, SUPPORTIVE (11/29/17) Family History: States: No Known Family Hx - Social History Hx Tobacco Use: Yes (heavy smoker >10 cigarettes daily) Hx Alcohol Use: Yes Hx Substance Use: Yes - Immunization History Hx Tetanus Toxoid Vaccination: Yes Hx Influenza Vaccination: Yes Hx Pneumococcal Vaccination: Yes Review Of Systems Constitutional: Negative for: Fever Cardiovascular: Negative for: Chest Pain, Palpitations Respiratory: Negative for: Shortness of Breath Gastrointestinal: Negative for: Nausea, Vomiting, Abdominal Pain, Diarrhea Skin: Negative for: Rash Neurological: Negative for: Weakness, Numbness, Headache, Dizziness Psych: Positive for: Suicidal ideation Physical Exam - Physical Exam Appears: Non-toxic, No Acute Distress Skin: Normal Color, Warm, Dry, No Rash Head: Atraumatic, Normacephalic Eye(s): bilateral: Normal Inspection Nose: Normal Oral Mucosa: Moist Lips: Normal Appearing Neck: Normal ROM Chest: Symmetrical Cardiovascular: Rhythm Regular, No Murmur Respiratory: Normal Breath Sounds, No Accessory Muscle Use Gastrointestinal/Abdominal: Soft, No Tenderness, No Guarding, No Rebound Extremity: Normal ROM, No Deformity, No Swelling Neurological/Psych: Oriented x3, Normal Speech ED Course And Treatment - Laboratory Results Result Diagrams: 12/27/17 12:58 12/27/17 12:58 ECG: Interpreted By Me, Viewed By Me ECG Rhythm: Sinus Tachycardia ECG Interpretation: No Acute Changes Interpretation Of ECG: Left axis deviation Rate From EC O2 Sat by Pulse Oximetry: 99 (RA) Pulse Ox Interpretation: Normal Medical Decision Making Medical Decision Makin:53 Case discussed with poison control, states to monitor pt for any changes 1800- patient observed and cleared for crisis repeat hr [address] woodall accepted patient to service Disposition Discussed With : Walker Woodall Doctor Will See Patient In The: Hospital Counseled Patient/Family Regarding: Studies Performed, Diagnosis - Disposition Disposition: HOSPITALIZED Disposition Time: 18:02 Condition: FAIR Forms: [facility] (J[place]ican) - Clinical Impression Clinical Impression: Depression - Scribe Statement The provider has reviewed the documentation as recorded by the Scribe (Rhett Salinas) All medical record entries made by the Scribe were at my direction and personally dictated by me. I have reviewed the chart and agree that the record accurately reflects my personal performance of the history, physical exam, medical decision making, and the department course for this patient. I have also personally directed, reviewed, and agree with the discharge instructions and disposition.
[2017-12-27] MEDS ORDERED: Sodium Chloride 0.9% 1,000 ML IV ONE ×2 (15:06→17:37)
--- NOTE | 2017-12-27 19:08 | PCM.BM ---
<Brianna Cobb - Last Filed: 12/27/17 19:07> Treatment Plan Problems - Problems identified on initial assessmt depression Date Initiated: 12/27/17 Time Initiated: 19:07 Assessment reference: NA Status: Active Treatment assets and liabiliti Patient Assests: adapts well, cooperative, educated, motivated, self-reliant, ADL independent, physically healthy, negotiates basic needs, cognitively intact Patient Liabilities: live alone, financial problems, poor support system, substance abuse - Milieu Protocol Maintain good personal hygiene: daily Encourage regular showers, daily Remind patient to perform daily oral care, daily Assist patient to perform ADL's Maintain personal safety: every shift Educate patient to report safety concerns to staff, every shift Monitor environment for contraband/sharps Medication safety: Monitor for expected outcome, potential side effects: every shift, Assess barriers to learning: every shift, Assess readiness for medication education: every shift <Tri Baugh - Last Filed: 12/29/17 11:39> Family Contact Family involvement: Famliy/SO not involved - Goals for Treatment Patient goals for treatment: "I want to go to [facility]." Discharge/Continuing Care - Education Needs Education Needs: Patient Medication, Patient Coping Skills, Patient Placement options, Patient Community resources - Discharge Discharge Criteria: Tolerates medication w/o severe side effects, No longer exhibiting s/s of withdrawal Discharge to:: Substance Abuse Rehab - Treatment Team Participation Discussed with Family/SO: No Was Patient/Family/SO present at Treatment Team Meeting: Yes <Melly Martinez - Last Filed: 12/29/17 12:52> - Diagnosis (1) Depression Status: Acute Interventions: 12/29/17 12:51 * Assess/adjust medications daily and /or as needed * See patient on an individual basis 7x/week to assess symptoms of depression * Monitor for side effects & effectiveness of medications * (2) Opioid use disorder, severe, dependence Status: Acute Interventions: 12/29/17 12:52 * Assess 7x/week regarding severity of withdrawal * Educate regarding risks, benefits, side effects and alternatives of medications * Use Motivational Interviewing for abstinence * Use CBT for relapse prevention * Medication management for withdrawal symptoms * Encourage medication assisted treatment *
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
--- NOTE | 2017-12-29 10:25 | PCM.PYCHPN ---
Psychiatric Progress Note - Psychiatric Progress Note Patient seen today, length of contact: 15 min Patient Chief Complaint: I was feeling depressed.' Problems Identified/Issues Discussed: Patient seen and evaluated, chart reviewed and discussed with the nurse. He reports depressed mood and feelings of hopelessness and helplessness. He still reports suicidal ideation without any plan. Patient remained isolated, confined and withdrawn. Patient reports withdrawal symptoms including nausea, headaches, cramps and sweating. Patient is compliant with medications and denies any side effects. Symptoms are improving but need more time to stabilize. Support and psychoeducation given. Medication Change: Yes (increase abilify) Medical Record Reviewed: Yes Mental Status Examination - Cognitive Function Orientation: Person, Place, Situation, Time Memory: Intact Attention: WNL Concentration: Poor Association: WNL Fund of Knowledge: Poor - Mood Mood: Depressed, Anxious - Affect Affect: Constricted, Depressed - Speech Speech: Soft - Formal Thought Process Formal Thought Process: Delusions, Paranoia - Suicidal Ideation Suicidal Ideation: No - Homicidal Ideation Homicidal Ideation: No Goal/Treatment Plan - Goal/Treatment Plan Need for Continued Stay: Severe depression anxiety, Severe functional impairment Progress Toward Problem(s) and Goals/Treatment Plan: Major Depressive Disorder recurrent severe without psychotic features Alcohol Use Disorder, Severe Cocaine Use Disorder, Severe Hallucinogen use disorder severe CBT Psychoeducation Supportive therapy, group therapy, individual therapy Trazodone 50 mg by mouth daily at bedtime Hydroxyzine 25 mg by mouth every 6 hours when necessary Gabapentin 100 mg po TID Aripiprazole 10 mg by mouth daily at bedtime Use [place] for abstinence
[2017-12-30 06:52] VITALS: O2SAT 98
--- NOTE | 2017-12-30 19:53 | PCM.PYCHPN ---
Psychiatric Progress Note - Psychiatric Progress Note Patient seen today, length of contact: 15 min Patient Chief Complaint: "I'm feeling depressed" Problems Identified/Issues Discussed: Patient seen and evaluated, chart reviewed. Case discussed with the nurse. He is still isolated to himself. He encouraged to attend groups. He reports depressed mood and feelings of hopelessness and helplessness. He still reports suicidal ideation without any plan and intent. Patient reports improvement in withdrawal symptoms including nausea, headaches, cramps and sweating. Patient is compliant with medications and denies any side effects. Symptoms are improving but need more time to stabilize. Support and psychoeducation given. Medication Change: Yes (increase abilify) Medical Record Reviewed: Yes Mental Status Examination - Cognitive Function Orientation: Person, Place, Situation, Time Memory: Intact Attention: WNL Concentration: Poor Association: WNL Fund of Knowledge: Poor Decription of patient's judgement and insights: LIMITED/LIMITED - Mood Mood: Depressed, Anxious - Affect Affect: Constricted, Depressed - Speech Speech: Soft - Formal Thought Process Formal Thought Process: Delusions, Paranoia - Suicidal Ideation Suicidal Ideation: No Plan: DENIED - Homicidal Ideation Homicidal Ideation: No Plan: DENIED Goal/Treatment Plan - Goal/Treatment Plan Need for Continued Stay: Severe depression anxiety, Severe functional impairment Progress Toward Problem(s) and Goals/Treatment Plan: Continue current treatment and management as per primary team Monitor vitals Therapy in milieu Medication benefits, side effects discussed with the pt and he verbalized understanding and agree with the treatment plan. - Smoking Cessation Smoking Cessation Initiated: Yes
--- NOTE | 2017-12-31 15:04 | PCM.PYCHPN ---
Psychiatric Progress Note - Psychiatric Progress Note Patient seen today, length of contact: 15 min Patient Chief Complaint: "I'm feeling depressed" Problems Identified/Issues Discussed: Patient seen and evaluated, chart reviewed. Case discussed with the nurse. He is still isolated to himself. He reports depressed mood and feelings of hopelessness and helplessness. He still reports suicidal ideation without any plan and intent. He contracted hospital for safety. Patient reports improvement in withdrawal symptoms including nausea, headaches, cramps and sweating. Patient is compliant with medications and denies any side effects. Symptoms are improving but need more time to stabilize. Support and psychoeducation given. Medication Change: No Medical Record Reviewed: Yes Mental Status Examination - Cognitive Function Orientation: Person, Place, Situation, Time Memory: Intact Attention: WNL Concentration: Poor Association: WNL Fund of Knowledge: Poor Decription of patient's judgement and insights: LIMITED/LIMITED - Mood Mood: Depressed, Anxious - Affect Affect: Constricted, Depressed - Speech Speech: Appropriate, Soft - Formal Thought Process Formal Thought Process: Delusions, Paranoia Psychotic Thoughts and Behaviors: denied AH, VH - Suicidal Ideation Suicidal Ideation: No Plan: denied - Homicidal Ideation Homicidal Ideation: No Plan: denied Goal/Treatment Plan - Goal/Treatment Plan Need for Continued Stay: Severe depression anxiety, Severe functional impairment Progress Toward Problem(s) and Goals/Treatment Plan: Continue current treatment and management as per primary team Monitor vitals Therapy in milieu Medication benefits, side effects discussed with the pt and he verbalized understanding and agree with the treatment plan. Estimated Date of D/C: 01/02/18
--- NOTE | 2018-01-01 11:14 | PCM.PYCHPN ---
Psychiatric Progress Note - Psychiatric Progress Note Patient seen today, length of contact: 15 min Patient Chief Complaint: I was feeling little better.' Problems Identified/Issues Discussed: Patient seen and evaluated, chart reviewed and discussed with the nurse. He reports some improvement in his mood and some improvement in the feelings of hopelessness and helplessness. Patient remained isolated, confined and withdrawn. Patient reports withdrawal symptoms including nausea, headaches, cramps and sweating. Patient is compliant with medications and denies any side effects. Symptoms are improving but need more time to stabilize. Support and psychoeducation given. Medication Change: No Medical Record Reviewed: Yes Mental Status Examination - Cognitive Function Orientation: Person, Place, Situation, Time Memory: Intact Attention: WNL Concentration: Poor Association: WNL Fund of Knowledge: Poor - Mood Mood: Depressed, Anxious - Affect Affect: Constricted, Depressed - Speech Speech: Appropriate, Soft - Formal Thought Process Formal Thought Process: No Impairment - Suicidal Ideation Suicidal Ideation: No - Homicidal Ideation Homicidal Ideation: No Goal/Treatment Plan - Goal/Treatment Plan Need for Continued Stay: Severe depression anxiety, Severe functional impairment Progress Toward Problem(s) and Goals/Treatment Plan: Major Depressive Disorder recurrent severe without psychotic features Alcohol Use Disorder, Severe Cocaine Use Disorder, Severe Hallucinogen use disorder severe CBT Psychoeducation Supportive therapy, group therapy, individual therapy Trazodone 50 mg by mouth daily at bedtime Hydroxyzine 25 mg by mouth every 6 hours when necessary Gabapentin 100 mg po TID Aripiprazole 10 mg by mouth daily at bedtime Use [place] for abstinence Estimated Date of D/C: 01/02/18
--- NOTE | 2018-01-03 06:05 | PCM.PYCHPN ---
Psychiatric Progress Note - Psychiatric Progress Note Patient seen today, length of contact: 15 min Patient Chief Complaint: I was feeling anxious.' Problems Identified/Issues Discussed: Patient seen and evaluated, chart reviewed and discussed with the nurse. He reports anxiety and asking for stronger meds for anxiety. He reports some improvement in his mood but still appears depressed. Patient reports improvement in the withdrawal symptoms. Patient is compliant with medications and denies any side effects. Symptoms are improving but need more time to stabilize. Support and psychoeducation given. Medication Change: Yes (Increase Neurontin) Medical Record Reviewed: Yes Mental Status Examination - Cognitive Function Orientation: Person, Place, Situation, Time Memory: Intact Attention: WNL Concentration: Poor Association: WNL Fund of Knowledge: Poor - Mood Mood: Depressed, Anxious - Affect Affect: Constricted, Depressed - Speech Speech: Appropriate, Soft - Formal Thought Process Formal Thought Process: No Impairment - Suicidal Ideation Suicidal Ideation: No - Homicidal Ideation Homicidal Ideation: No Goal/Treatment Plan - Goal/Treatment Plan Need for Continued Stay: Severe depression anxiety, Severe functional impairment Progress Toward Problem(s) and Goals/Treatment Plan: Major Depressive Disorder recurrent severe without psychotic features Alcohol Use Disorder, Severe Cocaine Use Disorder, Severe Hallucinogen use disorder severe CBT Psychoeducation Supportive therapy, group therapy, individual therapy Trazodone 50 mg by mouth daily at bedtime Hydroxyzine 25 mg by mouth every 6 hours when necessary Gabapentin 300 mg po TID Aripiprazole 10 mg by mouth daily at bedtime Use [place] for abstinence Estimated Date of D/C: 01/02/18
--- NOTE | 2018-01-03 18:12 | PCM.PYCHPN ---
Psychiatric Progress Note - Psychiatric Progress Note Patient seen today, length of contact: 15 min Patient Chief Complaint: "I have withdrawal symptoms" Problems Identified/Issues Discussed: Patient seen and evaluated, chart reviewed. Case discussed with the nurse. Nurse reported that he has 1 episode of diarrhea and he received Immodium and Atarax for anxiety. He is still isolated to himself. He reports depressed mood and feelings of hopelessness and helplessness. He reports improvement in is suicidal ideation, intent and plan. He contracted hospital for safety. Patient reports some improvement in withdrawal symptoms including nausea, headaches, however, he still had diarrhea and anxiety. Patient is compliant with medications and denies any side effects. Symptoms are improving but need more time to stabilize. Support and psychoeducation given. Medication Change: Yes (Increase Abilify) Medical Record Reviewed: Yes Mental Status Examination - Cognitive Function Orientation: Person, Place, Situation, Time Memory: Intact Attention: WNL Concentration: Poor Association: WNL Fund of Knowledge: Poor Decription of patient's judgement and insights: improving/improving - Mood Mood: Depressed, Anxious - Affect Affect: Constricted, Depressed - Speech Speech: Appropriate, Soft - Formal Thought Process Formal Thought Process: No Impairment - Suicidal Ideation Suicidal Ideation: No Plan: denied - Homicidal Ideation Homicidal Ideation: No Plan: denied Goal/Treatment Plan - Goal/Treatment Plan Need for Continued Stay: Severe depression anxiety, Severe functional impairment Progress Toward Problem(s) and Goals/Treatment Plan: Continue current treatment and management except increase Abilify for depression. Prn meds for alcohol withdrawal symptoms. Monitor vitals Therapy in milieu Medication benefits, side effects discussed with the pt and he verbalized understanding and agree with the treatment plan. Estimated Date of D/C: 01/02/18
--- NOTE | 2018-01-04 09:51 | PCM.PYCHPN ---
Psychiatric Progress Note - Psychiatric Progress Note Patient seen today, length of contact: 15 min Patient Chief Complaint: I was feeling better.' Problems Identified/Issues Discussed: Patient seen and evaluated, chart reviewed and discussed with the nurse. He reports improvement in his mood improvement in the withdrawal symptoms. Patient is compliant with medications and denies any side effects. Symptoms are improving but need more time to stabilize. Support and psychoeducation given. Medication Change: Yes (Increase Abilify) Medical Record Reviewed: Yes Mental Status Examination - Cognitive Function Orientation: Person, Place, Situation, Time Memory: Intact Attention: WNL Concentration: WNL Association: WN Fund of Knowledge: WN - Mood Mood: Depressed, Anxious - Affect Affect: Constricted, Depressed - Speech Speech: Appropriate, Soft - Formal Thought Process Formal Thought Process: No Impairment - Suicidal Ideation Suicidal Ideation: No - Homicidal Ideation Homicidal Ideation: No Goal/Treatment Plan - Goal/Treatment Plan Need for Continued Stay: Severe depression anxiety, Severe functional impairment Progress Toward Problem(s) and Goals/Treatment Plan: Major Depressive Disorder recurrent severe without psychotic features Alcohol Use Disorder, Severe Cocaine Use Disorder, Severe Hallucinogen use disorder severe CBT Psychoeducation Supportive therapy, group therapy, individual therapy Trazodone 50 mg by mouth daily at bedtime Hydroxyzine 25 mg by mouth every 6 hours when necessary Gabapentin 300 mg po TID Aripiprazole 10 mg by mouth daily at bedtime Use OR for abstinence Estimated Date of D/C: 01/02/18
[2018-01-04] MEDS: Fluticasone Nasal 50 mcg/Spray NS PRN (22:16)
[2018-01-05 06:46] VITALS: BP 144/90; PULSE 86; RESP 18; TEMP 97.7
[2018-01-05] MEDS: Fluticasone Nasal 50 mcg/Spray NS PRN (09:07)
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
== END 2018-01-05 11:11 | disposition home or self-care (01) | DRG 430 ==
LOC: C.ER 12:11 → C.5E 18:01
PROC: GZHZZZZ Group Psychotherapy (ICD-10-PCS; principal; 2017-12-27)
PROC: HZ52ZZZ Individual Psychotherapy for Substance Abuse Treatment, Cognitive-Behavioral (ICD-10-PCS; 2017-12-27)
PROC: HZ59ZZZ Individual Psychotherapy for Substance Abuse Treatment, Supportive (ICD-10-PCS; 2017-12-27)
PROC: HZ56ZZZ Individual Psychotherapy for Substance Abuse Treatment, Psychoeducation (ICD-10-PCS; 2017-12-27)
PROC: HZ42ZZZ Group Counseling for Substance Abuse Treatment, Cognitive-Behavioral (ICD-10-PCS; 2017-12-27)
PROC: HZ46ZZZ Group Counseling for Substance Abuse Treatment, Psychoeducation (ICD-10-PCS; 2017-12-27)
PROC: GZ58ZZZ Individual Psychotherapy, Cognitive-Behavioral (ICD-10-PCS; 2017-12-27)
PROC: GZ56ZZZ Individual Psychotherapy, Supportive (ICD-10-PCS; 2017-12-27)
DX: F33.2 Major depressive disorder, recurrent severe without psychotic features (principal); F10.230 Alcohol dependence with withdrawal, uncomplicated; F14.20 Cocaine dependence, uncomplicated; F16.20 Hallucinogen dependence, uncomplicated; F11.20 Opioid dependence, uncomplicated; Y90.0 Blood alcohol level of less than 20 mg/100 ml; F43.10 Post-traumatic stress disorder, unspecified; F17.210 Nicotine dependence, cigarettes, uncomplicated; R45.851 Suicidal ideations; I10 Essential (primary) hypertension; F41.8 Other specified anxiety disorders; Z59.0 Homelessness

== ENCOUNTER 2018-02-23 17:54 | Inpatient (IN) | payer MEDICAID ==
[2018-02-23 18:12] VITALS: BMI 22.4
[2018-02-23 18:51] LABS: BASO # 0.1 K/uL (0.0-0.2); EOS # 0.2 K/uL (0.0-0.7); EOS % 2.1 % (0.0-4.0); HEMOGLOBIN 14.9 g/dL (12.0-18.0); LYMPH # 2.9 K/uL (1.0-4.3); LYMPH % 30.7 % (20.0-40.0); MEAN CELL VOLUME 81.1 fL (80.0-94.0); MEAN CORPUSCULAR HEMOGLOBIN 26.3 pg (27.0-31.0); MEAN CORPUSCULAR HGB CONC 32.4 g/dL (33.0-37.0); MEAN PLATELET VOLUME 9.1 fL (7.2-11.7); MONO # 0.6 K/uL (0.0-0.8); NEUT # 5.5 K/uL (1.8-7.0); NEUT % 59.2 % (50.0-75.0); NRBC % 0.2 % (0.0-2.0); RBC 5.68 Mil/uL (4.40-5.90); RED CELL DISTRIBUTION WIDTH 14.2 % (11.5-14.5); WHITE BLOOD COUNT 9.3 K/uL (4.8-10.8)
[2018-02-23 18:54] LABS: URINE BACTERIA RARE (<OCC); URINE BILIRUBIN NEGATIVE (NEGATIVE); URINE BLOOD NEGATIVE (NEGATIVE); URINE CLARITY Clear (Clear); URINE COLOR Yellow (YELLOW); URINE GLUCOSE (UA) NORMAL (Normal); URINE LEUKOCYTE ESTERASE NEG Leu/uL (Negative); URINE PROTEIN NEGATIVE (NEGATIVE); URINE UROBILINOGEN NORMAL mg/dL (0.2-1.0)
--- NOTE | 2018-02-23 18:55 | RAD ---
HISTORY: r/o infiltrate COMPARISON: None available. TECHNIQUE: Chest, one view. FINDINGS: Examination limited by habitus. LUNGS: No focal consolidation. Please note that chest x-ray has limited sensitivity for the detection of pulmonary masses. PLEURA: No significant pleural effusion identified. No definite pneumothorax . CARDIOVASCULAR: Heart size appears within normal limits. OSSEOUS STRUCTURES: No acute osseous abnormality identified. VISUALIZED UPPER ABDOMEN: Unremarkable. OTHER FINDINGS: None. IMPRESSION: No focal consolidation, significant pleural effusion, or definite pneumothorax identified.
[2018-02-23 19:25] LABS: ALB/GLOB RATIO 1.5 (1.0-2.1); ALBUMIN 4.7 g/dL (3.5-5.0); ALT/SGPT 62 U/L (21-72); AST/SGOT 29 U/L (17-59); BLOOD UREA NITROGEN 17 mg/dL (9-20); GFR NON-AFRICAN AMERICAN > 60
[2018-02-23 19:26] LABS: ACETAMINOPHEN < 10.0 ug/mL (10.0-30.0); SALICYLATE < 1.0 mg/dL 1
[2018-02-23 19:54] LABS: BARBITURATES, UR NEGATIVE (NEGATIVE); BENZODIAZEPINES, UR NEGATIVE (NEGATIVE); OPIATES, UR NEGATIVE (NEGATIVE)
[2018-02-23 20:02] LABS: PHENCYCLIDINE, UR POSITIVE (NEGATIVE)
--- NOTE | 2018-02-23 20:21 | C.PDOC ---
History Of Present Illness 27 y/o male presents to the ED complaining of feeling depressed and suicidal. States he took 30 tablets of cough medicine in attempt at suicide but realized now it was a mistake and came to the ED. He denies any homicidal ideation or hallucinations. No other physical complaints offered at this time. Time Seen by Provider: 02/23/18 18:31 Chief Complaint (Nursing): Psychiatric Evaluation History Per: Patient History/Exam Limitations: no limitations Onset/Duration Of Symptoms: Days Current Symptoms Are (Timing): Still Present Suicide/Self Injury Attempted (Context): Ingestion (Cough medicine x30 tabs) Associated Symptoms: Depression, Suicidal Thoughts Involuntary Hold By: None Past Medical History Reviewed: Historical Data, Nursing Documentation, Vital Signs Vital Signs: Last Vital Signs Temp 99 F 02/23/18 23:47 Pulse 84 02/23/18 23:47 Resp 16 02/23/18 23:47 BP 140/88 02/23/18 23:47 Pulse Ox 96 02/23/18 23:47 - Medical History PMH: Anxiety, Depression, HTN, Post Traumatic Stress Disorder Denies: Diabetes, Hepatitis, HIV, Chronic Kidney Disease, Seizures, Sexually Transmitted Disease - [facility] Procedures GROUP FOREMAN/PROJECT MANAGER FOR SUBSTANCE ABUSE TREATMENT, PSYCHOEDUCATION (12/27/17) GROUP FOREMAN/PROJECT MANAGER FOR SUBSTANCE ABUSE, COGNITIVE BEHAVIORAL (12/27/17) GROUP PSYCHOTHERAPY (12/27/17) INDIV PSYCHOTHERAPY FOR SUBSTANCE ABUSE TREATMENT, SUPPORT (12/27/17) INDIV PSYCHOTHERAPY FOR SUBSTANCE ABUSE, COGNITIV BEHAVIORAL (12/27/17) INDIV PSYCHOTHERAPY FOR SUBSTANCE ABUSE, PSYCHOEDUCATION (12/27/17) INDIVIDUAL PSYCHOTHERAPY, BEHAVIORAL (12/19/17) INDIVIDUAL PSYCHOTHERAPY, COGNITIVE-BEHAVIORAL (12/27/17) INDIVIDUAL PSYCHOTHERAPY, SUPPORTIVE (12/27/17) INTRODUCTION OF SERUM/TOX/VACCINE INTO MUSCLE, PERC APPROACH (12/18/17) Family History: States: No Known Family Hx - Social History Hx Tobacco Use: Yes (heavy smoker >10 cigarettes daily) Hx Alcohol Use: Yes (social) Hx Substance Use: No (PT DENIES) - Immunization History Hx Tetanus Toxoid Vaccination: Yes Hx Influenza Vaccination: Yes Hx Pneumococcal Vaccination: Yes Review Of Systems Except As Marked, All Systems Reviewed And Found Negative. Constitutional: Negative for: Fever Eyes: Negative for: Vision Change Cardiovascular: Negative for: Chest Pain, Palpitations Respiratory: Negative for: Cough, Shortness of Breath Gastrointestinal: Negative for: Nausea, Vomiting, Abdominal Pain, Diarrhea Neurological: Negative for: Weakness, Numbness, Change in Speech, Altered Mental Status, Headache, Dizziness Psych: Positive for: Depression, Suicidal ideation. Negative for: Other ( hallucinations, HI) Physical Exam - Physical Exam Appears: Non-toxic, No Acute Distress Skin: Normal Color, Warm, Dry Head: Atraumatic, Normacephalic Eye(s): bilateral: Normal Inspection, PERRL, EOMI Nose: Normal Oral Mucosa: Moist Neck: Normal ROM Chest: Symmetrical Cardiovascular: Rhythm Regular, No Murmur Respiratory: Normal Breath Sounds, No Rales, No Rhonchi, No Wheezing Gastrointestinal/Abdominal: Soft, No Tenderness, No Distention Extremity: Bilateral: Atraumatic, Normal Color And Temperature, Normal ROM Neurological/Psych: Oriented x3, Normal Speech, Normal Cranial Nerves Gait: Steady ED Course And Treatment - Laboratory Results Result Diagrams: 02/23/18 18:44 02/23/18 18:44 ECG: Interpreted By Me, Viewed By Me ECG Rhythm: Sinus Rhythm ECG Interpretation: No Acute Changes Interpretation Of ECG: Normal axis, normal intervals Rate From EC O2 Sat by Pulse Oximetry: 99 - Radiology CXR: Viewed By Me, Read By Radiologist CXR Interpretation: Yes: No Acute Disease. No: Infiltrates, Pnemothorax Medical Decision Making Medical Decision Making: Initial Impression: Depression, Suicidal ideation/attempt Initial Plan: --EKG --Blood work --Urinalysis --Chest X-Ray --Placed on 1:1 as per suicide precaution --bulbs farmworker to evaluate at bedside Labs reviewed. U-tox shows (+) phencyclidine. Disposition - Disposition Disposition Time: 21:00 Condition: STABLE Forms: [facility] ([employer]) - Clinical Impression Clinical Impression: Major depressive disorder - Scribe Statement The provider has reviewed the documentation as recorded by the Isha Booker Provider Attestation: All medical record entries made by the Scribe were at my direction and personally dictated by me. I have reviewed the chart and agree that the record accurately reflects my personal performance of the history, physical exam, medical decision making, and the department course for this patient. I have also personally directed, reviewed, and agree with the discharge instructions and disposition.
[2018-02-23 23:52] VITALS: O2SAT 99
--- NOTE | 2018-02-24 00:30 | PCM.BM ---
<Analisa Ventura - Last Filed: 02/24/18 00:28> Treatment Plan Problems - Problems identified on initial assessmt Potential to harm self Date Initiated: 02/24/18 Time Initiated: 00:29 Assessment reference: NA Status: Active Treatment assets and liabiliti Patient Assests: adapts well, negotiates basic needs, cognitively intact, cooperative, educated, motivated, self-reliant, ADL independent, physically healthy Patient Liabilities: substance abuse - Milieu Protocol Maintain good personal hygiene: daily Encourage regular showers, daily Remind patient to perform daily oral care, daily Assist patient to perform ADL's Maintain personal safety: every shift Educate patient to report safety concerns to staff, every shift Monitor environment for contraband/sharps Medication safety: Monitor for expected outcome, potential side effects: every shift, Assess barriers to learning: every shift, Assess readiness for medication education: every shift <Linda Hussein - Last Filed: 02/26/18 14:49> Family Contact Family involvement: Patient does not wish Family/SO involvement Family contact: Patient declines to allow family contact at present - Goals for Treatment Patient goals for treatment: "I want to go to an [facility] for treatment." Discharge/Continuing Care - Education Needs Education Needs: Patient Medication, Patient Diagnosis/Disease Process, Patient Coping Skills, Patient Placement options, Patient Community resources - Discharge Discharge Criteria: Free of Suicidal thoughts, Normal sleep pattern, Ability to care for self, No longer exhibiting s/s of withdrawal, Reduction of target symptoms Discharge to:: Prison - Treatment Team Participation Discussed with Family/SO: No Was Patient/Family/SO present at Treatment Team Meeting: Yes <Sandra Valerio - Last Filed: 02/27/18 13:20> - Diagnosis (1) Major depressive disorder Status: Chronic Interventions: 02/27/18 13:20 * Assess/adjust medications daily and /or as needed * See patient on an individual basis 7x/week to assess symptoms of depression * Monitor for side effects & effectiveness of medications * (2) Dextromethorphan overdose Status: Acute Interventions: 02/27/18 13:20 * Assess 7x/week regarding severity of withdrawal * Educate regarding risks, benefits, side effects and alternatives of medications * Use Motivational Interviewing for abstinence * Use CBT for relapse prevention * Medication management for withdrawal symptoms * Encourage medication assisted treatment *
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
--- NOTE | 2018-02-25 12:14 | PCM.PYCHPN ---
Psychiatric Progress Note - Psychiatric Progress Note Patient seen today, length of contact: 16 min Patient Chief Complaint: "I'd like to go tomorrow" Problems Identified/Issues Discussed: The pt is seen, chart reviewed, case discussed with staff. Support and psychoeducation given, CBT and NM used briefly No new symptoms reported, improving slowly and needs more time No SEs from medications, risks discussed. After care discussed Medication Change: Yes (meds adjusted) Medical Record Reviewed: Yes Mental Status Examination - Cognitive Function Orientation: Person, Place, Situation, Time Memory: Intact Attention: WNL Concentration: Poor Association: WNL Fund of Knowledge: WNL - Mood Mood: Depressed, Anxious - Affect Affect: Constricted - Speech Speech: Appropriate - Formal Thought Process Formal Thought Process: No Impairment - Suicidal Ideation Suicidal Ideation: No - Homicidal Ideation Homicidal Ideation: No Goal/Treatment Plan - Goal/Treatment Plan Need for Continued Stay: Discharge may exacerbated symptoms, Severe functional impairment Progress Toward Problem(s) and Goals/Treatment Plan: Prozac and Ailify As needed medications Attend groups and activities Supportive therapy and psychoeducation NM for abstinence CBT for relapse prevention Encourage MAT Refer to rehab or IOP Attend self-help groups as well
[2018-02-26] MEDS ORDERED: Pneumococcal 23-Valent Vaccine IM ONE (10:00)
--- NOTE | 2018-02-26 11:26 | CARD ---
APPROVED REPORT Date of service: 02/23/2018 EKG Measurement Heart [id number] <Conclusion> Normal sinus rhythm Normal ECG
--- NOTE | 2018-02-26 15:21 | PCM.PYCHPN ---
Psychiatric Progress Note - Psychiatric Progress Note Patient seen today, length of contact: 20 min Patient Chief Complaint: "I'm anxious" Problems Identified/Issues Discussed: The pt is seen, chart reviewed, case discussed with staff. The pt is compliant with medications and reports no side-effects. Symptoms are improving but needs more time to stabilize. Pt attends groups and activities. Support given, psycho-education provided. After care discussed. He also met with the SW. He was advised to be careful with plans and have back-up plans. Now he wants to stay in and go to an IOP Still depressed Medication Change: Yes (meds adjusted) Medical Record Reviewed: Yes Mental Status Examination - Cognitive Function Orientation: Person, Place, Situation, Time Memory: Intact Attention: WNL Concentration: Poor Association: WNL Fund of Knowledge: WNL - Mood Mood: Depressed, Anxious - Affect Affect: Constricted - Speech Speech: Appropriate - Formal Thought Process Formal Thought Process: No Impairment - Suicidal Ideation Suicidal Ideation: No - Homicidal Ideation Homicidal Ideation: No Goal/Treatment Plan - Goal/Treatment Plan Need for Continued Stay: Discharge may exacerbated symptoms, Severe functional impairment Progress Toward Problem(s) and Goals/Treatment Plan: Prozac and Abilify As needed medications Attend groups and activities Supportive therapy and psychoeducation ID for abstinence CBT for relapse prevention Encourage MAT Refer to rehab or IOP Attend self-help groups as well Estimated Date of D/C: 02/28/18
--- NOTE | 2018-02-27 13:21 | PCM.PYCHPN ---
Psychiatric Progress Note - Psychiatric Progress Note Patient seen today, length of contact: 18 min Patient Chief Complaint: "I'm anxious" Problems Identified/Issues Discussed: The pt is seen, chart reviewed, case discussed with staff. Support and psychoeducation given, CBT and PA used briefly No new symptoms reported, improving slowly and needs more time How to stay away from drugs and not risks discussed No SEs from medications, risks discussed. After care discussed Medication Change: Yes (meds adjusted) Medical Record Reviewed: Yes Mental Status Examination - Cognitive Function Orientation: Person, Place, Situation, Time Memory: Intact Attention: WNL Concentration: Poor Association: WNL Fund of Knowledge: WNL - Mood Mood: Depressed, Anxious - Affect Affect: Constricted - Speech Speech: Appropriate - Formal Thought Process Formal Thought Process: No Impairment - Suicidal Ideation Suicidal Ideation: No - Homicidal Ideation Homicidal Ideation: No Goal/Treatment Plan - Goal/Treatment Plan Need for Continued Stay: Discharge may exacerbated symptoms, Severe functional impairment Progress Toward Problem(s) and Goals/Treatment Plan: Prozac and Abilify As needed medications Attend groups and activities Supportive therapy and psychoeducation PA for abstinence CBT for relapse prevention Encourage MAT Refer to rehab or IOP Attend self-help groups as well Estimated Date of D/C: 02/28/18
[2018-02-28 06:35] VITALS: BP 92/53; PULSE 82; RESP 18; TEMP 97.4
--- NOTE | 2018-02-28 09:50 | PCM.PYCHDC ---
Mental Status Examination - Mental Status Examination Orientation: Person Discharge Summary - Discharge Note Consultations:: List each consultation separately and include: 1. Reason for request. 2. Findings. 3. Follow-up Summary of Hospital Course include:: 1. Description of specific treatment plan utilized for patients during their course of treatmen. 2. Summarize the time- course for resolution of acute symptoms and/or regressed behaviors. 3. Describe issues identified and worked on during hospitalization. 4. Describe medication utilized. 5. Describe medical problems identified and treated. 6. Reassessment of suicide risk Summary of Hospital Course: He is seen, chart reviewed, case discussed. He is a 27 y/o AAM, single, has no child, homeless and unemployed currently. He is known from previous admissions. He is here for depression and suicidal ideation with a plan to "jump off a roof. " He feel safe now. He says he was off meds, doing drugs again. Patient used to live with his uncle but because of the patient's substance abuse problem and sexual orientation, patient was asked to leave. Later the patient was living in a senior care but is now homeless. He was also at [facility] in [place] most recently, but he used on one of the outside leaves and got busted and discharged. He uses "lots of" cough tablets (DXM) and cocaine. Denies other drugs or alcohol. Patient was diagnosed with PTSD by his psychiatrist bc of past abuses. Has some sxs now. No ellen but had hallucinations Rehab Hx: [facility]. Medical Hx: HTN Surgical Hx: denies Fam Hx: biological mother had Schizophrenia Allergies: no known allergies He will go to [facility]. He changed his mind about where to go several times. - Diagnosis (1) Major depressive disorder Current Visit: Yes Status: Chronic (2) Dextromethorphan overdose Current Visit: No Status: Acute - Final Diagnosis (DSM 5) Condition upon Discharge: STABLE Disposition: HOME/ ROUTINE Follow-up Treatment Plan: Prozac and Abilify As needed medications Attend groups and activities Supportive therapy and psychoeducation CA for abstinence CBT for relapse prevention Encourage MAT Refer to rehab or IOP Attend self-help groups as well Prescriptions/Medication Reconciliation: amLODIPine [Norvasc] 5 mg PO DAILY #30 tab ARIPiprazole [Abilify] 10 mg PO HS #30 tab FLUoxetine [Prozac] 20 mg PO DAILY #30 cap Lisinopril [Zestril] 10 mg PO DAILY #30 tab traZODone [Desyrel] 100 mg PO HS PRN #30 tab PRN Reason: Insomnia
== END 2018-02-28 14:50 | disposition home or self-care (01) | DRG 426 ==
LOC: C.ER 17:54 → C.5E 23:51
PROVIDERS: ADMIT Psychiatry & Neurology Psychiatry; ATTEND Psychiatry & Neurology Psychiatry
PROC: GZ3ZZZZ Medication Management (ICD-10-PCS; principal; 2018-02-23)
PROC: HZ89ZZZ Medication Management for Substance Abuse Treatment, Other Replacement Medication (ICD-10-PCS; 2018-02-23)
PROC: GZHZZZZ Group Psychotherapy (ICD-10-PCS; 2018-02-23)
PROC: GZ56ZZZ Individual Psychotherapy, Supportive (ICD-10-PCS; 2018-02-23)
PROC: HZ46ZZZ Group Counseling for Substance Abuse Treatment, Psychoeducation (ICD-10-PCS; 2018-02-23)
DX: F32.9 Major depressive disorder, single episode, unspecified (principal); F14.10 Cocaine abuse, uncomplicated; F16.10 Hallucinogen abuse, uncomplicated; F43.10 Post-traumatic stress disorder, unspecified; R45.851 Suicidal ideations; T48.3X2A Poisoning by antitussives, intentional self-harm, initial encounter; F17.210 Nicotine dependence, cigarettes, uncomplicated; Y92.9 Unspecified place or not applicable; I10 Essential (primary) hypertension; Z59.0 Homelessness; Z81.8 Family history of other mental and behavioral disorders

== ENCOUNTER 2018-06-11 15:41 | Inpatient (IN) | payer MEDICAID ==
[2018-06-11 15:41] VITALS: BMI 35.1
[2018-06-11] MEDS ORDERED: Charcoal 50 gm/240 ml Susp ONE ×2 (17:12→19:54)
[2018-06-11] MEDS ORDERED: Charcoal 50 gm/240 ml Susp PO STA ×2 (17:18→19:50)
[2018-06-11 17:47] LABS: BASO # 0.1 K/uL (0.0-0.2); BASO % 0.6 % (0.0-2.0); EOS # 0.2 K/uL (0.0-0.7); EOS % 1.3 % (0.0-4.0); HEMOGLOBIN 15.1 g/dL (12.0-18.0); LYMPH # 2.6 K/uL (1.0-4.3); LYMPH % 18.3 % (20.0-40.0); MEAN CELL VOLUME 82.7 fL (80.0-94.0); MEAN CORPUSCULAR HEMOGLOBIN 26.2 pg (27.0-31.0); MEAN CORPUSCULAR HGB CONC 31.6 g/dL (33.0-37.0); MEAN PLATELET VOLUME 9.7 fL (7.2-11.7); MONO # 0.9 K/uL (0.0-0.8); MONO % 6.1 % (0.0-10.0); NEUT # 10.4 K/uL (1.8-7.0); NEUT % 73.7 % (50.0-75.0); RBC 5.78 Mil/uL (4.40-5.90); RED CELL DISTRIBUTION WIDTH 14.9 % (11.5-14.5)
[2018-06-11] MEDS: Peg-Electrolyte Oral Soln 4L (Golytely) PO SCH ×7 (17:52→23:45)
[2018-06-11 17:54] LABS: WHITE BLOOD COUNT 14.2 K/uL (4.8-10.8)
[2018-06-11 18:09] LABS: ACETAMINOPHEN < 10.0 ug/mL (10.0-30.0); SALICYLATE < 1.0 mg/dL 1
--- NOTE | 2018-06-11 18:14 | C.PDOC ---
History Of Present Illness 27 y/o male, w/PMhx of substance abuse and bizarre impulsive behavior, BIBA for evaluation after consuming 5 boxes of Coricidin. 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 Patient was discharged with bottle of Wellbutrin. He claims that he did not take the medication, however he does not have the medication in his possession. Denies Aspirin and Tylenol abuse. <Sergio Lamb - Last Filed: 06/11/18 18:56> History Per: Patient History/Exam Limitations: no limitations Onset/Duration Of Symptoms: Hrs Current Symptoms Are (Timing): Still Present Severity: Moderate <Sergio Lamb - Last Filed: 06/11/18 18:56> <Killian Haynes - Last Filed: 06/11/18 21:55> Time Seen by Provider: 06/11/18 16:39 Chief Complaint (Nursing): Abdominal Pain Past Medical History Reviewed: Historical Data, Nursing Documentation, Vital Signs Vital Signs: Last Vital Signs Temp 100.1 F H 06/11/18 16:16 Pulse 139 H 06/11/18 16:16 Resp 18 06/11/18 16:16 BP 136/89 06/11/18 16:16 Pulse Ox 97 06/11/18 16:16 - Medical History PMH: Bipolar Disorder, Depression, HTN, Post Traumatic Stress Disorder Denies: Anxiety, Diabetes, Hepatitis, HIV, Chronic Kidney Disease, Seizures, Sexually Transmitted Disease Surgical History: No Surg Hx - [facility] 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 CUSTOMER SERVICE ANALYST FOR SUBSTANCE ABUSE TREATMENT, PSYCHOEDUCATION (02/23/18) GROUP CUSTOMER SERVICE ANALYST FOR SUBSTANCE ABUSE, COGNITIVE BEHAVIORAL (12/27/17) GROUP PSYCHOTHERAPY (02/23/18) INDIV PSYCHOTHERAPY FOR SUBSTANCE ABUSE TREATMENT, SUPPORT (12/27/17) INDIV PSYCHOTHERAPY FOR SUBSTANCE ABUSE, COGNITIV BEHAVIORAL (12/27/17) INDIV PSYCHOTHERAPY FOR SUBSTANCE ABUSE, PSYCHOEDUCATION (12/27/17) INDIVIDUAL PSYCHOTHERAPY, BEHAVIORAL (12/19/17) INDIVIDUAL PSYCHOTHERAPY, COGNITIVE-BEHAVIORAL (12/27/17) INDIVIDUAL PSYCHOTHERAPY, SUPPORTIVE (02/23/18) INTRODUCTION OF SERUM/TOX/VACCINE INTO MUSCLE, PERC APPROACH (12/18/17) MEDICATION MANAGEMENT (02/23/18) MEDS MGMT FOR SUBSTANCE ABUSE TREATMENT, OTH REPL MED (02/23/18) Family History: States: No Known Family Hx - Social History Hx Tobacco Use: Yes (heavy smoker >10 cigarettes daily) Hx Alcohol Use: Yes Hx Substance Use: Yes - Immunization History Hx Tetanus Toxoid Vaccination: Yes Hx Influenza Vaccination: Yes Hx Pneumococcal Vaccination: Yes <Sergio Lamb E - Last Filed: 06/11/18 18:56> Vital Signs: Last Vital Signs Temp 100.1 F H 06/11/18 16:16 Pulse 119 H 06/11/18 20:33 Resp 20 06/11/18 20:33 BP 156/104 H 06/11/18 20:33 Pulse Ox 100 06/11/18 20:33 - [facility] Procedures GROUP CUSTOMER SERVICE ANALYST FOR SUBSTANCE ABUSE TREATMENT, PSYCHOEDUCATION (02/23/18) GROUP CUSTOMER SERVICE ANALYST FOR SUBSTANCE ABUSE, COGNITIVE BEHAVIORAL (12/27/17) GROUP PSYCHOTHERAPY (02/23/18) INDIV PSYCHOTHERAPY FOR SUBSTANCE ABUSE TREATMENT, SUPPORT (12/27/17) INDIV PSYCHOTHERAPY FOR SUBSTANCE ABUSE, COGNITIV BEHAVIORAL (12/27/17) INDIV PSYCHOTHERAPY FOR SUBSTANCE ABUSE, PSYCHOEDUCATION (12/27/17) INDIVIDUAL PSYCHOTHERAPY, BEHAVIORAL (12/19/17) INDIVIDUAL PSYCHOTHERAPY, COGNITIVE-BEHAVIORAL (12/27/17) INDIVIDUAL PSYCHOTHERAPY, SUPPORTIVE (02/23/18) INTRODUCTION OF SERUM/TOX/VACCINE INTO MUSCLE, PERC APPROACH (12/18/17) MEDICATION MANAGEMENT (02/23/18) MEDS MGMT FOR SUBSTANCE ABUSE TREATMENT, OTH REPL MED (02/23/18) <Killian Haynes - Last Filed: 06/11/18 21:55> Review Of Systems Except As Marked, All Systems Reviewed And Found Negative. Constitutional: Negative for: Fever, Chills Gastrointestinal: Negative for: Nausea, Vomiting, Abdominal Pain <Sergio Lamb - Last Filed: 06/11/18 18:56> Physical Exam - Physical Exam Appears: Other (obese,black male, bizarre affect, awake, alert, confused consistent with dissociative phenomenon) Skin: Normal Color, Warm, Dry Head: Atraumatic, Normacephalic Eye(s): bilateral: Normal Inspection Nose: Normal Oral Mucosa: Moist Neck: Supple Chest: Symmetrical Cardiovascular: Rhythm Regular Respiratory: Normal Breath Sounds, No Rales, No Rhonchi, No Wheezing Gastrointestinal/Abdominal: Normal Exam, Soft, No Tenderness, No Guarding, No Rebound Neurological/Psych: Other (awake, alert, confused consistent with dissociative p henomenon) <Sergio Lamb - Last Filed: 06/11/18 18:56> ED Course And Treatment - Laboratory Results Result Diagrams: 06/11/18 17:40 12 17:40 O2 Sat by Pulse Oximetry: 97 (RA) Pulse Ox Interpretation: Normal <Sergio Lamb - Last Filed: 06/11/18 18:56> - Laboratory Results Result Diagrams: 06/11/18 17:40 12 17:40 ECG: Interpreted By Me, Viewed By Me ECG Rhythm: Sinus Tachycardia ECG Interpretation: No Acute Changes Interpretation Of ECG: Sinus tachycardia, LAD, no acute changes, abnormal tracings. Rate From EC Pulse Ox Interpretation: Normal Progress Note: Repeat EKG-Sinus tachycardia, no acute change, rate of 111/min. otherwiae normal tracingss. Reevaluation Time: 21:48 <Killian Haynes - Last Filed: 06/11/18 21:55> Medical Decision Making Medical Decision Makin: substance abuse, probably hallucinagenic toxidrome due to intentional Coricidin overdose/abuse LOW umiar of Tylenol abuse d/w Crisis, will defer inpt eval until re-evaled AFTER medically cleared by ED pending urine studies and repeat exams. <Sergio Lamb - Last Filed: 06/11/18 18:56> Medical Decision Makin: Patient remains stable in the ER with no seizure activity, alert, conscious. Poison control recommended patient to be admitted to ICU for closer observation for possible seizures. Dr. York called and notified for ICU consult, will come and see the patient. <Killian Haynes - Last Filed: 06/11/18 21:55> Disposition - Disposition Disposition Time: 19:00 <Sergio Lamb - Last Filed: 06/11/18 18:56> Discussed With : Ken Orta Doctor Will See Patient In The: Hospital Counseled Patient/Family Regarding: Diagnosis - Disposition Disposition Time: 21:53 - POA Present On Arrival: None <Killian Haynes - Last Filed: 12/10/18 21:55> - Disposition Disposition: HOSPITALIZED Condition: STABLE Forms: [facility] (Vietnamese) - Clinical Impression Clinical Impression: Chlorpheniramine overdose, Dextromethorphan overdose, Drug overdose - Scribe Statement The provider has reviewed the documentation as recorded by the Andersonibe Gamaliel Maldonado Provider Attestation: All medical record entries made by the Scribe were at my direction and personally dictated by me. I have reviewed the chart and agree that the record accurately reflects my personal performance of the history, physical exam, medical decision making, and the department course for this patient. I have also personally directed, reviewed, and agree with the discharge instructions and disposition. <Sergio Lamb E - Last Filed: 06/11/18 18:56> Physician Patient Turnover Patient Signed Over To: Killian Haynes Handoff Comments: follow-up eval (urine studies, etc). Crisis to re-eval when clinically sober. <Sergio Lamb - Last Filed: 06/11/18 18:56>
[2018-06-11 18:17] LABS: ALBUMIN 5.3 g/dL (3.5-5.0); ALT/SGPT 48 U/L (21-72); AST/SGOT 42 U/L (17-59); BLOOD UREA NITROGEN 15 mg/dL (9-20); CALCIUM 9.6 mg/dl (8.6-10.4); GFR NON-AFRICAN AMERICAN > 60
[2018-06-11 18:27] LABS: ALB/GLOB RATIO 1.6 (1.0-2.1)
[2018-06-11] MEDS ORDERED: Sodium Chloride 0.9% 1,000 ML IV ONE ×2 (20:38)
[2018-06-11] MEDS ORDERED: Sodium Chloride 0.9% 1,000 ML ONE (20:44)
[2018-06-11 21:18] LABS: URINE BACTERIA OCC (<OCC); URINE BILIRUBIN NEGATIVE (NEGATIVE); URINE BLOOD NEGATIVE (NEGATIVE); URINE CLARITY Clear (Clear); URINE COLOR Yellow (YELLOW); URINE GLUCOSE (UA) NORMAL (Normal); URINE LEUKOCYTE ESTERASE NEG Leu/uL (Negative); URINE PROTEIN 2+ mg/dL (NEGATIVE); URINE UROBILINOGEN NORMAL mg/dL (0.2-1.0)
[2018-06-11 21:22] LABS: BARBITURATES, UR NEGATIVE (NEGATIVE); OPIATES, UR NEGATIVE (NEGATIVE)
[2018-06-11 21:36] LABS: BENZODIAZEPINES, UR POSITIVE (NEGATIVE); PHENCYCLIDINE, UR POSITIVE (NEGATIVE)
--- NOTE | 2018-06-11 23:16 | CP.PCM.CON ---
History of Present Illness - History of Present Illness History of Present Illness: 27 y/o male, w/PMhx of substance abuse and bizarre impulsive behavior,HTN, BIBA for evaluation after consuming 5 boxes of Coricidin. 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 Patient was discharged with bottle of Wellbutrin. He claims that he did not take the medication Denies Aspirin and Tylenol abuse. Review of Systems - Constitutional Constitutional: absent: Chills, Fever - EENT Eyes: absent: Blurred Vision, Diplopia Nose/Mouth/Throat: absent: Nasal Congestion, Sore Throat - Cardiovascular Cardiovascular: absent: Chest Pain, Dyspnea, Palpitations - Respiratory Respiratory: absent: Cough, Dyspnea - Gastrointestinal Gastrointestinal: Diarrhea. absent: Abdominal Pain, Nausea, Vomiting - Genitourinary Genitourinary: absent: Dysuria, Hematuria - Integumentary Integumentary: absent: Rash - Neurological Neurological: absent: Dizziness, Weakness - Endocrine Endocrine: absent: Polyuria - Hematologic/Lymphatic Hematologic: absent: Easy Bleeding Past Patient History - Infectious Disease Hx of Infectious Diseases: None - Past Medical History & Family History Past Medical History?: Yes - Past Social History Smoking Status: Heavy Smoker > 10 Cigarettes Daily Drugs: Cocaine, Opiates, Other - CARDIAC Hx Cardiac Disorders: No Hx Hypertension: Yes - PULMONARY Hx Tuberculosis: No - NEUROLOGICAL HX Cerebrovascular Accident: No Hx Seizures: No - HEENT Hx HEENT Problems: No - RENAL Hx Chronic Kidney Disease: No - ENDOCRINE/METABOLIC Hx Endocrine Disorders: No Hx Diabetes Mellitus Type 1: No Hx Diabetes Mellitus Type 2: No - HEMATOLOGICAL/ONCOLOGICAL Hx Cancer: No Hx Human Immunodeficiency Virus (HIV): No - INTEGUMENTARY Hx Dermatological Problems: No - MUSCULOSKELETAL/RHEUMATOLOGICAL Hx Musculoskeletal Disorders: No Hx Falls: No - GASTROINTESTINAL Hx Gastrointestinal Disorders: No - GENITOURINARY/GYNECOLOGICAL Hx Sexually Transmitted Disorders: No - PSYCHIATRIC Hx Anxiety: No Hx Bipolar Disorder: Yes Hx Depression: Yes Hx Post Traumatic Stress Disorder: Yes Hx Substance Use: Yes - SURGICAL HISTORY Hx Surgeries: No - ANESTHESIA Hx Anesthesia: Yes Hx Anesthesia Reactions: No Meds Allergies/Adverse Reactions: Allergies Allergy/AdvReac Type Severity Reaction Status Date / Time No Known Allergies Allergy Verified 06/11/18 16:23 - Medications Medications: Current Medications Sodium Chloride (Sodium Chloride 0.9%) 1,000 mls @ 100 mls/hr IV .Q10H ONE Stop: 06/12/18 06:37 Last Admin: 06/11/18 21:03 Dose: 100 mls/hr Polyethylene Glycol/Electrolytes (Golytely) 4,000 ml PO Q1H KARINA Last Admin: 06/11/18 22:45 Dose: 4,000 ml Physical Exam - Constitutional Appears: Non-toxic, No Acute Distress - Head Exam Head Exam: ATRAUMATIC, NORMAL INSPECTION, NORMOCEPHALIC - Eye Exam Eye Exam: EOMI, PERRL - ENT Exam ENT Exam: Mucous Membranes Moist - Neck Exam Neck exam: Positive for: Normal Inspection - Respiratory Exam Respiratory Exam: Clear to Auscultation Bilateral, NORMAL BREATHING PATTERN - Cardiovascular Exam Cardiovascular Exam: Tachycardia. absent: JVD - GI/Abdominal Exam GI & Abdominal Exam: Normal Bowel Sounds, Soft. absent: Tenderness - Extremities Exam Extremities exam: Positive for: normal inspection, pedal pulses present. Negative for: calf tenderness, pedal edema - Neurological Exam Neurological exam: Alert, Oriented x3 - Skin Skin Exam: Normal Color Results - Vital Signs Recent Vital Signs: Last Vital Signs Temp 100.1 F H 06/11/18 16:16 Pulse 109 H 06/11/18 22:19 Resp 24 06/11/18 22:22 BP 152/96 H 06/11/18 22:19 Pulse Ox 95 06/11/18 22:22 - Labs Result Diagrams: 06/11/18 17:40 06/11/18 17:40 Labs: Laboratory Results - last 24 hr 06/11/18 06/11/18 06/11/18 17:40 17:40 17:40 WBC 14.2 H D RBC 5.78 Hgb 15.1 Hct 47.8 MCV 82.7 MCH 26.2 L MCHC 31.6 L RDW 14.9 H Plt Count 229 MPV 9.7 Neut % (Auto) 73.7 Lymph % (Auto) 18.3 L [place] % (Auto) 6.1 Eos % (Auto) 1.3 Baso % (Auto) 0.6 Neut # (Auto) 10.4 H Lymph # (Auto) 2.6 [place] # (Auto) 0.9 H Eos # (Auto) 0.2 Baso # (Auto) 0.1 Sodium 140 Potassium 4.2 Chloride 107 Carbon Dioxide 19 L Anion Gap 19 BUN 15 Creatinine 0.9 Est GFR ( Amer) > 60 Est GFR (Non-Af Amer) > 60 Random Glucose 178 H Calcium 9.6 Phosphorus 3.2 Magnesium 2.2 Total Bilirubin 0.6 AST 42 ALT 48 Alkaline Phosphatase 81 Total Protein 8.3 Albumin 5.3 H Globulin 3.2 Albumin/Globulin Ratio 1.6 Urine Color Urine Clarity Urine pH Ur Specific [place] Urine Protein Urine Glucose (UA) Urine Ketones Urine Blood Urine Nitrate Urine Bilirubin Urine Urobilinogen Ur Leukocyte Esterase Urine WBC (Auto) Urine RBC (Auto) Urine Bacteria Salicylates < 1.0 Urine Opiates Screen Urine Methadone Screen Acetaminophen < 10.0 L Ur Barbiturates Screen Ur Phencyclidine Scrn Ur Amphetamines Screen U Benzodiazepines Scrn U Oth Cocaine Metabols U Cannabinoids Screen Alcohol, Quantitative < 10 06/11/18 06/11/18 21:00 21:00 WBC RBC Hgb Hct MCV MCH MCHC RDW Plt Count MPV Neut % (Auto) Lymph % (Auto) [place] % (Auto) Eos % (Auto) Baso % (Auto) Neut # (Auto) Lymph # (Auto) [place] # (Auto) Eos # (Auto) Baso # (Auto) Sodium Potassium Chloride Carbon Dioxide Anion Gap BUN Creatinine Est GFR ( Amer) Est GFR (Non-Af Amer) Random Glucose Calcium Phosphorus Magnesium Total Bilirubin AST ALT Alkaline Phosphatase Total Protein Albumin Globulin Albumin/Globulin Ratio Urine Color Yellow Urine Clarity Clear Urine pH 5.0 Ur Specific [place] 1.019 Urine Protein 2+ H Urine Glucose (UA) Normal Urine Ketones Negative Urine Blood Negative Urine Nitrate Negative Urine Bilirubin Negative Urine Urobilinogen Normal Ur Leukocyte Esterase Neg Urine WBC (Auto) < 1 Urine RBC (Auto) < 1 Urine Bacteria Occ H Salicylates Urine Opiates Screen Negative Urine Methadone Screen Negative Acetaminophen Ur Barbiturates Screen Negative Ur Phencyclidine Scrn Positive H Ur Amphetamines Screen Negative U Benzodiazepines Scrn Positive U Oth Cocaine Metabols Negative U Cannabinoids Screen Negative Alcohol, Quantitative - EKG Data EKG Interpreted by: Myself Assessment & Plan - Assessment and Plan (Free Text) Assessment: 1.Coricidin Overdose with possible wellbutrin overdose ER physician called poison control monitor for arrythmias and siezures as recommended by poison control 2.Leucocytosis- f/u with labs in am chest xray no infiltrate,UA no evidence of infection 3.Hyperglycemia HbAIC 4.Depression/multiple attempts at overdose in the past monitor in ICU after admission
[2018-06-12] MEDS: Peg-Electrolyte Oral Soln 4L (Golytely) PO SCH ×2 (00:33→01:30)
[2018-06-12 07:14] LABS: BASO # 0.1 K/uL (0.0-0.2); EOS # 0.2 K/uL (0.0-0.7); EOS % 2.3 % (0.0-4.0); HEMOGLOBIN 13.5 g/dL (12.0-18.0); LYMPH # 3.4 K/uL (1.0-4.3); LYMPH % 31.7 % (20.0-40.0); MEAN CELL VOLUME 84.3 fL (80.0-94.0); MEAN CORPUSCULAR HEMOGLOBIN 27.6 pg (27.0-31.0); MEAN CORPUSCULAR HGB CONC 32.7 g/dL (33.0-37.0); MONO # 1.1 K/uL (0.0-0.8); MONO % 10.1 % (0.0-10.0); NEUT % 54.9 % (50.0-75.0); RBC 4.89 Mil/uL (4.40-5.90); RED CELL DISTRIBUTION WIDTH 14.9 % (11.5-14.5); WHITE BLOOD COUNT 10.9 K/uL (4.8-10.8)
[2018-06-12 07:40] LABS: ALB/GLOB RATIO 1.4 (1.0-2.1); ALBUMIN 4.1 g/dL (3.5-5.0); ALT/SGPT 47 U/L (21-72); AST/SGOT 35 U/L (17-59); BLOOD UREA NITROGEN 9 mg/dL (9-20); CALCIUM 8.4 mg/dl (8.6-10.4); GFR NON-AFRICAN AMERICAN > 60
--- NOTE | 2018-06-12 10:03 | CP.PCM.PN ---
Subjective - Date & Time of Evaluation Date of Evaluation: 06/12/18 - Subjective Subjective: H&P [facility] #[id number] Objective - Vital Signs/Intake and Output Vital Signs (last 24 hours): Temp Pulse Resp BP Pulse Ox 98.6 F 97 H 18 151/68 H 98 06/12/18 04:00 06/12/18 04:00 06/12/18 04:00 06/12/18 02:14 06/12/18 04:00 Intake and Output: 06/12/18 06/12/18 06:59 18:59 Intake Total 400 0 Output Total 0 Balance 400 0 - Medications Medications: Current Medications Enoxaparin Sodium (Lovenox) 30 mg SC DAILY [facility] Pantoprazole Sodium (Protonix Ec Tab) 40 mg PO DAILY KARINA - Labs Labs: 06/12/18 06:56 06/12/18 06:56
[2018-06-12] MEDS: Enoxaparin 30 mg Syringe SC SCH (10:31)
[2018-06-12] MEDS: Pantoprazole 40 mg EC Tab PO SCH (10:31)
--- NOTE | 2018-06-12 10:34 | RAD ---
HISTORY: drug overdose COMPARISON: Chest x-ray performed 02/23/18 TECHNIQUE: Chest, one view. FINDINGS: Examination limited by habitus. LUNGS: No focal consolidation. Please note that chest x-ray has limited sensitivity for the detection of pulmonary masses. PLEURA: No significant pleural effusion identified. No definite pneumothorax . CARDIOVASCULAR: The cardiomediastinal silhouette appears within normal limits of size. No significant atherosclerotic calcification present. OSSEOUS STRUCTURES: No acute osseous abnormality identified. VISUALIZED UPPER ABDOMEN: Unremarkable. OTHER FINDINGS: None. IMPRESSION: No focal consolidation identified.
--- NOTE | 2018-06-12 11:18 | CP.CCUPN ---
CCU Subjective - Physician Review Subjective (Free Text): 06/12/18 11:14 Diana Acevedo PGY1 Progress note for Dr. Bedoya Pt was examined at bedside this morning. He reports current suicidal ideations with a plan. He reports a long standing history of suicidal thoughts and attempts, as he states he is depressed. He reports paranoid delusions that the world is going to end and that everything is going poorly. He denies auditory or visual hallucinations. He denies homicidal ideations. Pt reports being homeless and going to different hospitals and drug dens for places to sleep. He reports tobacco, etoh, and recreational drug use daily. He reports feeling hopeless, and that he cannot try to get better. Pt hemodynamically stable for transfer to psych. CCU Objective - Vital Signs / Intake & Output Intake and Output (Last 8hrs): Intake & Output 06/11/18 06/12/18 06/12/18 22:59 06:59 14:59 Intake Total 400 0 Output Total 0 Balance 400 0 Weight 273 lb 269 lb 13.533 oz Intake: Intake, IV Amount 400 0 Right Antecubital 400 0 Oral 0 Output: Urine 0 Urine, Voided 0 Stool 0 Other: # Voids Urine, Voided 1 - Medications Active Medications: Active Medications Generic Name Dose Route Start Last Admin Trade Name Freq PRN Reason Stop Dose Admin Enoxaparin Sodium 30 mg 06/12/18 10:00 06/12/18 10:31 Lovenox SC 30 mg DAILY KARINA Administration Lisinopril 20 mg 06/12/18 11:00 Zestril PO DAILY KARINA Pantoprazole Sodium 40 mg 06/12/18 10:00 06/12/18 10:31 Protonix Ec Tab PO 40 mg DAILY KARINA Administration - Patient Studies Lab Studies: Lab Studies 06/12/18 06/12/18 06/12/18 Range/Units 06:56 06:56 06:56 WBC 10.9 H (4.8-10.8) K/uL RBC 4.89 (4.40-5.90) Mil/uL Hgb 13.5 (12.0-18.0) g/dL Hct 41.2 (35.0-51.0) % MCV 84.3 (80.0-94.0) fL MCH 27.6 (27.0-31.0) pg MCHC 32.7 L (33.0-37.0) g/dL RDW 14.9 H (11.5-14.5) % Plt Count 186 (130-400) K/uL MPV 10.0 (7.2-11.7) fL Neut % (Auto) 54.9 (50.0-75.0) % Lymph % (Auto) 31.7 (20.0-40.0) % [place] % (Auto) 10.1 H (0.0-10.0) % Eos % (Auto) 2.3 (0.0-4.0) % Baso % (Auto) 1.0 (0.0-2.0) % Neut # (Auto) 6.0 (1.8-7.0) K/uL Lymph # (Auto) 3.4 (1.0-4.3) K/uL [place] # (Auto) 1.1 H (0.0-0.8) K/uL Eos # (Auto) 0.2 (0.0-0.7) K/uL Baso # (Auto) 0.1 (0.0-0.2) K/uL Sodium 138 (132-148) mmol/L Potassium 3.7 (3.6-5.2) mmol/L Chloride 106 (98-107) mmol/L Carbon Dioxide 23 (22-30) mmol/L Anion Gap 13 (10-20) BUN 9 (9-20) mg/dL Creatinine 0.8 (0.8-1.5) mg/dL Est GFR ( Amer) > 60 Est GFR (Non-Af Amer) > 60 Random Glucose 74 L (75-110) mg/dL Hemoglobin A1c 5.6 (4.2-6.5) % Calcium 8.4 L (8.6-10.4) mg/dl Phosphorus 3.0 (2.5-4.5) mg/dL Magnesium 1.9 (1.6-2.3) mg/dL Total Bilirubin 1.0 (0.2-1.3) mg/dL AST 35 (17-59) U/L ALT 47 (21-72) U/L Alkaline Phosphatase 55 (38-126) U/L Total Protein 6.9 (6.3-8.3) g/dL Albumin 4.1 (3.5-5.0) g/dL Globulin 2.8 (2.2-3.9) gm/dL Albumin/Globulin Ratio 1.4 (1.0-2.1) Urine Color (YELLOW) Urine Clarity (Clear) Urine pH (5.0-8.0) Ur Specific [place] (1.003-1.030) Urine Protein (NEGATIVE) mg/dL Urine Glucose (UA) (Normal) mg/dL Urine Ketones (NEGATIVE) mg/dL Urine Blood (NEGATIVE) Urine Nitrate (NEGATIVE) Urine Bilirubin (NEGATIVE) Urine Urobilinogen (0.2-1.0) mg/dL Ur Leukocyte Esterase (Negative) Christian/uL Urine WBC (Auto) (0-5) /hpf Urine RBC (Auto) (0-3) /hpf Urine Bacteria (<OCC) Salicylates mg/dL 1 Urine Opiates Screen (NEGATIVE) Urine Methadone Screen (NEGATIVE) Acetaminophen (10.0-30.0) ug/mL Ur Barbiturates Screen (NEGATIVE) Ur Phencyclidine Scrn (NEGATIVE) Ur Amphetamines Screen (NEGATIVE) U Benzodiazepines Scrn (NEGATIVE) U Oth Cocaine Metabols (NEGATIVE) U Cannabinoids Screen (NEGATIVE) Alcohol, Quantitative (0-10) mg/dl 06/11/18 06/11/18 06/11/18 Range/Units 21:00 21:00 17:40 WBC (4.8-10.8) K/uL RBC (4.40-5.90) Mil/uL Hgb (12.0-18.0) g/dL Hct (35.0-51.0) % MCV (80.0-94.0) fL MCH (27.0-31.0) pg MCHC (33.0-37.0) g/dL RDW (11.5-14.5) % Plt Count (130-400) K/uL MPV (7.2-11.7) fL Neut % (Auto) (50.0-75.0) % Lymph % (Auto) (20.0-40.0) % [place] % (Auto) (0.0-10.0) % Eos % (Auto) (0.0-4.0) % Baso % (Auto) (0.0-2.0) % Neut # (Auto) (1.8-7.0) K/uL Lymph # (Auto) (1.0-4.3) K/uL [place] # (Auto) (0.0-0.8) K/uL Eos # (Auto) (0.0-0.7) K/uL Baso # (Auto) (0.0-0.2) K/uL Sodium (132-148) mmol/L Potassium (3.6-5.2) mmol/L Chloride (98-107) mmol/L Carbon Dioxide (22-30) mmol/L Anion Gap (10-20) BUN (9-20) mg/dL Creatinine (0.8-1.5) mg/dL Est GFR ( Amer) Est GFR (Non-Af Amer) Random Glucose (75-110) mg/dL Hemoglobin A1c (4.2-6.5) % Calcium (8.6-10.4) mg/dl Phosphorus (2.5-4.5) mg/dL Magnesium (1.6-2.3) mg/dL Total Bilirubin (0.2-1.3) mg/dL AST (17-59) U/L ALT (21-72) U/L Alkaline Phosphatase (38-126) U/L Total Protein (6.3-8.3) g/dL Albumin (3.5-5.0) g/dL Globulin (2.2-3.9) gm/dL Albumin/Globulin Ratio (1.0-2.1) Urine Color Yellow (YELLOW) Urine Clarity Clear (Clear) Urine pH 5.0 (5.0-8.0) Ur Specific [place] 1.019 (1.003-1.030) Urine Protein 2+ H (NEGATIVE) mg/dL Urine Glucose (UA) Normal (Normal) mg/dL Urine Ketones Negative (NEGATIVE) mg/dL Urine Blood Negative (NEGATIVE) Urine Nitrate Negative (NEGATIVE) Urine Bilirubin Negative (NEGATIVE) Urine Urobilinogen Normal (0.2-1.0) mg/dL Ur Leukocyte Esterase Neg (Negative) Christian/uL Urine WBC (Auto) < 1 (0-5) /hpf Urine RBC (Auto) < 1 (0-3) /hpf Urine Bacteria Occ H (<OCC) Salicylates < 1.0 mg/dL 1 Urine Opiates Screen Negative (NEGATIVE) Urine Methadone Screen Negative (NEGATIVE) Acetaminophen < 10.0 L (10.0-30.0) ug/mL Ur Barbiturates Screen Negative (NEGATIVE) Ur Phencyclidine Scrn Positive H (NEGATIVE) Ur Amphetamines Screen Negative (NEGATIVE) U Benzodiazepines Scrn Positive (NEGATIVE) U Oth Cocaine Metabols Negative (NEGATIVE) U Cannabinoids Screen Negative (NEGATIVE) Alcohol, Quantitative (0-10) mg/dl 06/11/18 06/11/18 Range/Units 17:40 17:40 WBC 14.2 H D (4.8-10.8) K/uL RBC 5.78 (4.40-5.90) Mil/uL Hgb 15.1 (12.0-18.0) g/dL Hct 47.8 (35.0-51.0) % MCV 82.7 (80.0-94.0) fL MCH 26.2 L (27.0-31.0) pg MCHC 31.6 L (33.0-37.0) g/dL RDW 14.9 H (11.5-14.5) % Plt Count 229 (130-400) K/uL MPV 9.7 (7.2-11.7) fL Neut % (Auto) 73.7 (50.0-75.0) % Lymph % (Auto) 18.3 L (20.0-40.0) % [place] % (Auto) 6.1 (0.0-10.0) % Eos % (Auto) 1.3 (0.0-4.0) % Baso % (Auto) 0.6 (0.0-2.0) % Neut # (Auto) 10.4 H (1.8-7.0) K/uL Lymph # (Auto) 2.6 (1.0-4.3) K/uL [place] # (Auto) 0.9 H (0.0-0.8) K/uL Eos # (Auto) 0.2 (0.0-0.7) K/uL Baso # (Auto) 0.1 (0.0-0.2) K/uL Sodium 140 (132-148) mmol/L Potassium 4.2 (3.6-5.2) mmol/L Chloride 107 (98-107) mmol/L Carbon Dioxide 19 L (22-30) mmol/L Anion Gap 19 (10-20) BUN 15 (9-20) mg/dL Creatinine 0.9 (0.8-1.5) mg/dL Est GFR ( Amer) > 60 Est GFR (Non-Af Amer) > 60 Random Glucose 178 H (75-110) mg/dL Hemoglobin A1c (4.2-6.5) % Calcium 9.6 (8.6-10.4) mg/dl Phosphorus 3.2 (2.5-4.5) mg/dL Magnesium 2.2 (1.6-2.3) mg/dL Total Bilirubin 0.6 (0.2-1.3) mg/dL AST 42 (17-59) U/L ALT 48 (21-72) U/L Alkaline Phosphatase 81 (38-126) U/L Total Protein 8.3 (6.3-8.3) g/dL Albumin 5.3 H (3.5-5.0) g/dL Globulin 3.2 (2.2-3.9) gm/dL Albumin/Globulin Ratio 1.6 (1.0-2.1) Urine Color (YELLOW) Urine Clarity (Clear) Urine pH (5.0-8.0) Ur Specific [place] (1.003-1.030) Urine Protein (NEGATIVE) mg/dL Urine Glucose (UA) (Normal) mg/dL Urine Ketones (NEGATIVE) mg/dL Urine Blood (NEGATIVE) Urine Nitrate (NEGATIVE) Urine Bilirubin (NEGATIVE) Urine Urobilinogen (0.2-1.0) mg/dL Ur Leukocyte Esterase (Negative) Christian/uL Urine WBC (Auto) (0-5) /hpf Urine RBC (Auto) (0-3) /hpf Urine Bacteria (<OCC) Salicylates mg/dL 1 Urine Opiates Screen (NEGATIVE) Urine Methadone Screen (NEGATIVE) Acetaminophen (10.0-30.0) ug/mL Ur Barbiturates Screen (NEGATIVE) Ur Phencyclidine Scrn (NEGATIVE) Ur Amphetamines Screen (NEGATIVE) U Benzodiazepines Scrn (NEGATIVE) U Oth Cocaine Metabols (NEGATIVE) U Cannabinoids Screen (NEGATIVE) Alcohol, Quantitative < 10 (0-10) mg/dl Laboratory Results - last 24 hr 06/11/18 06/11/18 06/11/18 17:40 17:40 17:40 WBC 14.2 H D RBC 5.78 Hgb 15.1 Hct 47.8 MCV 82.7 MCH 26.2 L MCHC 31.6 L RDW 14.9 H Plt Count 229 MPV 9.7 Neut % (Auto) 73.7 Lymph % (Auto) 18.3 L [place] % (Auto) 6.1 Eos % (Auto) 1.3 Baso % (Auto) 0.6 Neut # (Auto) 10.4 H Lymph # (Auto) 2.6 [place] # (Auto) 0.9 H Eos # (Auto) 0.2 Baso # (Auto) 0.1 Sodium 140 Potassium 4.2 Chloride 107 Carbon Dioxide 19 L Anion Gap 19 BUN 15 Creatinine 0.9 Est GFR ( Amer) > 60 Est GFR (Non-Af Amer) > 60 Random Glucose 178 H Hemoglobin A1c Calcium 9.6 Phosphorus 3.2 Magnesium 2.2 Total Bilirubin 0.6 AST 42 ALT 48 Alkaline Phosphatase 81 Total Protein 8.3 Albumin 5.3 H Globulin 3.2 Albumin/Globulin Ratio 1.6 Urine Color Urine Clarity Urine pH Ur Specific [place] Urine Protein Urine Glucose (UA) Urine Ketones Urine Blood Urine Nitrate Urine Bilirubin Urine Urobilinogen Ur Leukocyte Esterase Urine WBC (Auto) Urine RBC (Auto) Urine Bacteria Salicylates < 1.0 Urine Opiates Screen Urine Methadone Screen Acetaminophen < 10.0 L Ur Barbiturates Screen Ur Phencyclidine Scrn Ur Amphetamines Screen U Benzodiazepines Scrn U Oth Cocaine Metabols U Cannabinoids Screen Alcohol, Quantitative < 10 06/11/18 06/11/18 06/12/18 21:00 21:00 06:56 WBC 10.9 H RBC 4.89 Hgb 13.5 Hct 41.2 MCV 84.3 MCH 27.6 MCHC 32.7 L RDW 14.9 H Plt Count 186 MPV 10.0 Neut % (Auto) 54.9 Lymph % (Auto) 31.7 [place] % (Auto) 10.1 H Eos % (Auto) 2.3 Baso % (Auto) 1.0 Neut # (Auto) 6.0 Lymph # (Auto) 3.4 [place] # (Auto) 1.1 H Eos # (Auto) 0.2 Baso # (Auto) 0.1 Sodium Potassium Chloride Carbon Dioxide Anion Gap BUN Creatinine Est GFR ( Amer) Est GFR (Non-Af Amer) Random Glucose Hemoglobin A1c Calcium Phosphorus Magnesium Total Bilirubin AST ALT Alkaline Phosphatase Total Protein Albumin Globulin Albumin/Globulin Ratio Urine Color Yellow Urine Clarity Clear Urine pH 5.0 Ur Specific [place] 1.019 Urine Protein 2+ H Urine Glucose (UA) Normal Urine Ketones Negative Urine Blood Negative Urine Nitrate Negative Urine Bilirubin Negative Urine Urobilinogen Normal Ur Leukocyte Esterase Neg Urine WBC (Auto) < 1 Urine RBC (Auto) < 1 Urine Bacteria Occ H Salicylates Urine Opiates Screen Negative Urine Methadone Screen Negative Acetaminophen Ur Barbiturates Screen Negative Ur Phencyclidine Scrn Positive H Ur Amphetamines Screen Negative U Benzodiazepines Scrn Positive U Oth Cocaine Metabols Negative U Cannabinoids Screen Negative Alcohol, Quantitative 06/12/18 06/12/18 06:56 06:56 WBC RBC Hgb Hct MCV MCH MCHC RDW Plt Count MPV Neut % (Auto) Lymph % (Auto) [place] % (Auto) Eos % (Auto) Baso % (Auto) Neut # (Auto) Lymph # (Auto) [place] # (Auto) Eos # (Auto) Baso # (Auto) Sodium 138 Potassium 3.7 Chloride 106 Carbon Dioxide 23 Anion Gap 13 BUN 9 Creatinine 0.8 Est GFR ( Amer) > 60 Est GFR (Non-Af Amer) > 60 Random Glucose 74 L Hemoglobin A1c 5.6 Calcium 8.4 L Phosphorus 3.0 Magnesium 1.9 Total Bilirubin 1.0 AST 35 ALT 47 Alkaline Phosphatase 55 Total Protein 6.9 Albumin 4.1 Globulin 2.8 Albumin/Globulin Ratio 1.4 Urine Color Urine Clarity Urine pH Ur Specific [place] Urine Protein Urine Glucose (UA) Urine Ketones Urine Blood Urine Nitrate Urine Bilirubin Urine Urobilinogen Ur Leukocyte Esterase Urine WBC (Auto) Urine RBC (Auto) Urine Bacteria Salicylates Urine Opiates Screen Urine Methadone Screen Acetaminophen Ur Barbiturates Screen Ur Phencyclidine Scrn Ur Amphetamines Screen U Benzodiazepines Scrn U Oth Cocaine Metabols U Cannabinoids Screen Alcohol, Quantitative EKG/Cardiology Studies: Cardiology / EKG Studies 06/11/18 16:42 ELECTROCARDIOGRAM Stat Comment: Mode Of Transportation: BED Reason For Exam: Detox/Psy 06/12/18 02:10 ELECTROCARDIOGRAM Stat Comment: Mode Of Transportation: BED Reason For Exam: CP 06/12/18 21:41 EKG [ELECTROCARDIOGRAM] Stat Comment: Mode Of Transportation: BED Reason For Exam: CP Critical Care Progress Note - Nutrition Nutrition: Nutrition Category Date Time Status Regular Diet [DIET] Diets 06/12/18 Lunch Active
[2018-06-12] MEDS ORDERED: Calcium Carbonate 500 mg Chewable Antacid Tab PO PRN (12:00)
[2018-06-12] MEDS ORDERED: Metoprolol 1 mg/ml Inj IVP ONE (12:21)
--- NOTE | 2018-06-12 13:06 | PCM.PSYCH ---
Initial Psychiatric Evaluation - Initial Psychiatric Evaluation Type of Admission: Voluntary Legal Status: Capacity Chief Complaint (in patient's own words): "I'm very depressed" History of Present Illness and Precipitating Events: Patient seen, chart reviewed, case discussed. Consult was requested for his suicide attempt. The patient is a 27-year-old single, homeless, [place], unemployed male with no children. The patient was released from [facility] and missed transportation with [employer] to go to [facility] in [place] It made the patient feel like he had no desire to live anymore. Yesterday, after discharge, the patient used 5 boxes of store-bought cough syrup at 1 pm to kill himself. He did not have seizures or complications so far. He says he has extremely negative self-worth and hates himself. Denies psychotic or manic sxs. He has hx of traumas and PTSD sxs. The patient has a history of sniffing 3 grams of cocaine per day and 1 liter of alcohol per day. The patient has a history of polysubstance abuse, including ecstasy, marijuana, LSD and PCP, with his last use one month ago. The patient states that has attempted suicide 8 times in the past and has over 10 psychiatric related hospitalizations. The patient was previously seen in this hospital in the summer 2017 and was discharged to [facility] in [place]. Past Psych History: Depression, PTSD, Borderline personality Past Medical History: HTN, overweight Family Psych History: denies Current Medications: Active Medications Generic Name Dose Route Start Last Admin Trade Name Freq PRN Reason Stop Dose Admin Calcium Carbonate 500 mg 06/12/18 12:00 06/12/18 12:14 Tums PO 500 mg BID PRN Administration Indigestion Enoxaparin Sodium 30 mg 06/12/18 10:00 06/12/18 10:31 Lovenox SC 30 mg DAILY KARINA Administration Lisinopril 20 mg 06/12/18 11:00 06/12/18 12:14 Zestril PO 20 mg DAILY KARINA Administration Pantoprazole Sodium 40 mg 06/12/18 10:00 06/12/18 10:31 Protonix Ec Tab PO 40 mg DAILY KARINA Administration Past Psychiatric History - Past Psychiatric History Previous Treatment History: Inpatient Pertinent Medical Hx (Current Medical&Sleep Prob, Allergies): Allergies Allergy/AdvReac Type Severity Reaction Status Date / Time No Known Allergies Allergy Verified 06/11/18 16:23 Lisinopril [Zestril] 20 mg PO DAILY tab 06/05/18 ARIPiprazole [Abilify] 5 mg PO HS 90 Days #90 tab 06/11/18 buPROPion SR [Wellbutrin SR 150 MG] 150 mg PO DAILY 90 Days #90 tab 06/11/18 Review of Systems - Psychiatric Psychiatric: Abnormal Sleep Pattern, Anhedonia, Anxiety, Depression, Difficulty Concentrating, Hopelessness, Irritability, Mood Swings. absent: Hallucinations, Homicidal Ideation, Suicidal Ideation (vague, w/o plan or intention) Mental Status Examination - Personal Presentation Personal Presentation: Looks stated age - Affect Affect: Constricted - Motor Activity Motor Activity: Calm - Reliability in Providing Information Reliability in Providing Information: Good - Speech Speech: Organized, Relevant, Coherent - Mood Mood: Depressed - Formal Thought Process Formal Thought Process: No Impairment - Obsessions/Compulsions Obsessions: No Compulsions: No - Cognitive Functions Orientation: Person, Place, Situation, Time Sensorium: Alert Attention/Concentration: Attentive Abstract Thinking: [place] Judgement: Intact, as evidence by: Insight regarding need for hospitalization Memory: Recent intact, as evidence by: Ability to recall events of the day, R emote intact, as evidenced by: Abilit to recall sig. 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 Attend groups and activities Individual therapy daily Psychoeducation and support daily Encourage compliance with meds and after care Refer to outpatient program Teach healthy lifestyle methods, i.e. diet, exercise, meditation TRANSFER TO 5-E WHEN MEDICALLY CLEARED CALL PRINTING AND STAMPING SUPERVISOR FIRST 33 min
--- NOTE | 2018-06-12 20:20 | PCM.BM ---
<Clarisse Belle - Last Filed: 06/12/18 20:15> Treatment Plan Problems - Problems identified on initial assessmt Depression Date Initiated: 06/12/18 Time Initiated: 17:15 Assessment reference: NA Status: Active Treatment assets and liabiliti Patient Assests: cooperative, educated, motivated, self-reliant, ADL independent, physically healthy, negotiates basic needs, cognitively intact Patient Liabilities: substance abuse, medical problems - Milieu Protocol Maintain good personal hygiene: daily Encourage regular showers, daily Remind patient to perform daily oral care, every shift Assist patient to perform ADL's Conduct patient checks and document Observation sheet: Q15 minutes Maintain personal safety: every shift Educate patient to report safety concerns to staff, every shift Monitor environment for contraband/sharps Medication safety: Monitor for expected outcome, potential side effects: every shift, Assess barriers to learning: every shift, Assess readiness for medication education: every shift Milieu Narrative: Start As need medications All risks, benefits and alternatives of the meds discussed, and the pt agreed and understood. Attend groups and activities Individual therapy daily Psychoeducation and support daily Encourage compliance with meds and after care Refer to outpatient program Teach healthy lifestyle methods, i.e. diet, exercise, meditation TRANSFER TO 5-E WHEN MEDICALLY CLEARED CALL DOUBLE END TENONER OPERATOR FIRST Discharge/Continuing Care - Treatment Team Participation Patient/Family/SO Statement: Start As need medications All risks, benefits and alternatives of the meds discussed, and the pt agreed and understood. Attend groups and activities Individual therapy daily Psychoeducation and support daily Encourage compliance with meds and after care Refer to outpatient program Teach healthy lifestyle methods, i.e. diet, exercise, meditation TRANSFER TO 5-E WHEN MEDICALLY CLEARED CALL DOUBLE END TENONER OPERATOR FIRST <Linda Hussein - Last Filed: 06/13/18 13:55> Family Contact Family involvement: Patient does not wish Family/SO involvement Family contact: Patient declines to allow family contact at present - Goals for Treatment Patient goals for treatment: "I want to go to a rehab program." Discharge/Continuing Care - Education Needs Education Needs: Patient Medication, Patient Diagnosis/Disease Process, Patient Coping Skills, Patient Placement options, Patient Community resources - Discharge Discharge Criteria: Free of Suicidal thoughts, Normal sleep pattern, Ability to care for self, No longer exhibiting s/s of withdrawal, Reduction of target symptoms Discharge to:: Substance Abuse Rehab - Treatment Team Participation Discussed with Family/SO: No Was Patient/Family/SO present at Treatment Team Meeting: Yes <Sandra Valerio - Last Filed: 06/17/18 08:54> - Diagnosis (1) Dextromethorphan overdose Status: Acute Interventions: 06/13/18 08:54 * Assess/adjust medications daily and /or as needed * Discuss risks, benefits, side effects and alternatives of medications * See patient on an individual basis 7x/week to assess level of suicidal th oughts * (2) Depression Status: Acute Interventions: 06/13/18 08:54 * Assess/adjust medications daily and /or as needed * See patient on an individual basis 7x/week to assess symptoms of depression * Monitor for side effects & effectiveness of medications *
--- NOTE | 2018-06-13 00:14 | HP ---
CHIEF COMPLAINT: Drug overdose with Coricidin one hour after being discharged from psych unit from [facility]. HISTORY OF PRESENT ILLNESS: Mr. Benavides is a 27-year-old male with a past medical history of hypertension and hyperlipidemia, diagnosed about 3 years ago, noncompliant with medication; history of bipolar disorder for the past 8 years; recently admitted to [facility] on 06/05/2018 and discharged on 06/11/2018 after being treated at psychiatric unit. He had multiple prior visits to ED and multiple admissions to the hospital here at [facility] and at [facility]. He was discharged from [facility] yesterday. Within 1 hour while he was waiting for the ride, he felt very suicidal and got four boxes of Coricidin, each box containing 16 tablets. It seems he took almost all the pills. He also had a bottle of Wellbutrin. He claims he did not take any of Wellbutrin. He claims that he was stressed and pressured, which made him suicidal and he wanted to kill himself and took Coricidin. When I examined, he denied any headache or dizziness; denied any chest pain, shortness of breath, or wheezing; denied any nausea, vomiting, or constipation. Has been having diarrhea. He claims he has decreased appetite. Denies any other neurologic symptoms. PAST MEDICAL HISTORY: History of hypertension for the past 3-4 years. Denies any history of diabetes or coronary artery disease. History of major depressive disorder. FAMILY HISTORY: Schizophrenia in mother. He is raised by uncle. PERSONAL HISTORY: He is single, not having any children, sexually active with the same sex, being homosexual. Used to work in [employer], currently unemployed. SOCIAL HISTORY: He smokes one pack per day for the past 2 years. He drinks 1 L of vodka every day. He uses cocaine and multiple other drugs. PAST SURGICAL HISTORY: He denies any past surgical history. ALLERGIES: NO KNOWN DRUG ALLERGIES. MEDICATIONS: At home include lisinopril 20 mg daily, Abilify 5 mg p.o. at bedtime, and Wellbutrin 150 mg p.o. daily. REVIEW OF SYSTEMS: As described in history of present illness. All other systems reviewed and were found to be negative. PHYSICAL EXAMINATION GENERAL: Young, well-built, well-nourished male, lying in bed, in no acute distress. VITAL SIGNS: Blood pressure 151/68, pulse 98, respirations 20, temperature 98.7 degrees Fahrenheit, O2 sats 98% on room air. HEENT: Pupils equal, round, and reacting to light and accommodation. Extraocular muscles intact. No icterus. No pallor. No oral thrush. No pharyngeal congestion. NECK: Supple. No JVD. LUNGS: Bilateral vesicular breath sounds. No wheezing. No rhonchi. CARDIOVASCULAR SYSTEM: S1 and S2 present, regular. ABDOMEN: Soft, nontender. Bowel sounds present. No guarding. No rigidity. No rebound tenderness noted. CENTRAL NERVOUS SYSTEM: Alert, awake, oriented x3. No focal deficits noted. EXTREMITIES: No edema. Palpable peripheral pulses. LABORATORY DATA: Labs done from the ED: WBC 14.2, hemoglobin 15.1, hematocrit 47.8, platelets 229. Sodium 140, potassium 4.2, chloride 107, bicarb 19, BUN 15, creatinine 0.9, glucose 178. Hemoglobin A1c 5.6. Calcium 9.6, phosphorus 3.2, magnesium 2.2, bilirubin 0.6, AST 42, ALT 48, alkaline phosphatase 81, total protein 8.3, albumin 5.3. UA; specific gravity 1.019, pH 5, protein 2+, otherwise negative. Urine drug screen positive for phencyclidine and benzodiazepines. Alcohol less than 10, salicylate less than 10, acetaminophen less than 10. Chest x-ray negative for any infiltrate. ASSESSMENT: A young male with a history of depression, hypertension, multiple admissions to the psychiatric floor for multiple suicidal attempts, recently discharged from the hospital yesterday. Within one hour, the patient became suicidal and ingested four boxes of Coricidin pills, each box containing 16, for which he was brought into the emergency room. In the emergency room, the patient was evaluated and Poison Control was contacted. The patient is being admitted for further evaluation. 1. Coricidin overdose with unknown Wellbutrin overdose. 2. Suicidal attempt. 3. History of hypertension. 4. History of major depressive disorder. PLAN: The patient is being admitted to ICU as recommended by Poison Control for monitoring of any seizures or cardiac arrhythmias from Coricidin. The patient received charcoal as recommended by Poison Control. We will continue with one-to-one observation, check serial EKGs, monitor neurologic status for seizure precaution, neuro checks. Restart his lisinopril. Elevated WBC count probably secondary to stress. No obvious source of infection. The patient remains afebrile. We will give DVT and GI prophylaxis. We will restart psych meds as per Psychiatry. We will do one-to-one observation, request a psychiatric evaluation. Discussed with the patient at length. Mri Technologist consult as per the patient's request. We will add further recommendation as his clinical course progresses. Ken Orta MD
[2018-06-13] MEDS: Enoxaparin 30 mg Syringe SC SCH (10:30)
[2018-06-13] MEDS: Pantoprazole 40 mg EC Tab PO SCH (10:56)
--- NOTE | 2018-06-13 13:49 | PCM.PYCHPN ---
Psychiatric Progress Note - Psychiatric Progress Note Patient seen today, length of contact: 16 min Patient Chief Complaint: "I'm depressed still" Problems Identified/Issues Discussed: The pt is seen, chart reviewed, case discussed with staff. Transferred to psychiatry The pt is compliant with medications and reports no side-effects. Symptoms are improving very slowly but needs more time to stabilize. Pt attends groups and activities. Support given, psycho-education provided. After care discussed. Medication Change: Yes (Add prazosin) Medical Record Reviewed: Yes Mental Status Examination - Cognitive Function Orientation: Person, Place, Situation, Time Memory: Intact Attention: Poor Concentration: Poor Association: WNL Fund of Knowledge: WNL - Mood Mood: Depressed - Affect Affect: Constricted - Speech Speech: Appropriate - Formal Thought Process Formal Thought Process: No Impairment - Suicidal Ideation Suicidal Ideation: No - Homicidal Ideation Homicidal Ideation: No Goal/Treatment Plan - Goal/Treatment Plan Need for Continued Stay: Discharge may exacerbated symptoms, Severe functional impairment Progress Toward Problem(s) and Goals/Treatment Plan: Prozac for depression and anxiety As need medications All risks, benefits and alternatives of the meds discussed, and the pt agreed and understood. Attend groups and activities Individual therapy daily Psychoeducation and support daily Encourage compliance with meds and after care Refer to outpatient program Teach healthy lifestyle methods, i.e. diet, exercise, meditation
[2018-06-14] MEDS: Pantoprazole 40 mg EC Tab PO SCH (10:23)
[2018-06-14 14:50] LABS: HEPATITIS B SURFACE AG Negative (NEGATIVE)
[2018-06-14 14:56] LABS: HEPATITIS A IGM NEGATIVE (NEGATIVE); HEPATITIS B CORE AB NEGATIVE (NEGATIVE)
[2018-06-14 15:07] LABS: HEPATITIS C ANTIBODY NEGATIVE (NEGATIVE)
--- NOTE | 2018-06-15 05:14 | CARD ---
APPROVED REPORT Date of service: 06/12/2018 EKG Measurement Heart [id number] 142P42 [id number] <Conclusion> Normal sinus rhythm Normal ECG
--- NOTE | 2018-06-15 05:28 | CARD ---
APPROVED REPORT Date of service: 06/11/2018 EKG Measurement Heart [id number] NC 142P62 [id number] <Conclusion> Sinus tachycardia Otherwise normal ECG
--- NOTE | 2018-06-15 05:29 | CARD ---
APPROVED REPORT Date of service: 06/11/2018 EKG Measurement Heart [id number] CT [id number] [id number] <Conclusion> Sinus tachycardia Possible Left atrial enlargement Left axis deviation Abnormal ECG
[2018-06-15] MEDS ORDERED: Pneumococcal 23-Valent Vaccine IM ONE (10:00)
[2018-06-15] MEDS ORDERED: Influenza Vaccine 60 MCG/0.5 ML SYR (3 yr & up) IM ONE (10:00)
[2018-06-15] MEDS: Pantoprazole 40 mg EC Tab PO SCH (11:32)
--- NOTE | 2018-06-16 08:19 | PCM.PYCHPN ---
Psychiatric Progress Note - Psychiatric Progress Note Medication Change: Yes (Add prazosin) Medical Record Reviewed: Yes Mental Status Examination - Cognitive Function Orientation: Person, Place, Situation, Time - Mood Mood: Depressed - Affect Affect: Constricted - Formal Thought Process Formal Thought Process: No Impairment - Homicidal Ideation Homicidal Ideation: No
[2018-06-16] MEDS: Pantoprazole 40 mg EC Tab PO SCH (10:05)
--- NOTE | 2018-06-17 08:54 | PCM.PYCHPN ---
Psychiatric Progress Note - Psychiatric Progress Note Patient seen today, length of contact: 16 min Patient Chief Complaint: "I'm not well" Problems Identified/Issues Discussed: The pt is seen, chart reviewed, case discussed with staff. Support and psychoeducation given, CBT and ID used briefly No new symptoms reported, improving slowly and needs more time No SEs from medications, risks discussed. After care discussed Medication Change: Yes (adjusted meds) Medical Record Reviewed: Yes Mental Status Examination - Cognitive Function Orientation: Person, Place, Situation, Time Memory: Intact Attention: Poor Concentration: Poor Association: WNL Fund of Knowledge: WNL - Mood Mood: Depressed - Affect Affect: Constricted - Speech Speech: Appropriate - Formal Thought Process Formal Thought Process: No Impairment - Suicidal Ideation Suicidal Ideation: No - Homicidal Ideation Homicidal Ideation: No Goal/Treatment Plan - Goal/Treatment Plan Need for Continued Stay: Discharge may exacerbated symptoms, Severe functional impairment Progress Toward Problem(s) and Goals/Treatment Plan: Prozac for depression and anxiety As need medications All risks, benefits and alternatives of the meds discussed, and the pt agreed and understood. Attend groups and activities Individual therapy daily Psychoeducation and support daily Encourage compliance with meds and after care Refer to outpatient program Teach healthy lifestyle methods, i.e. diet, exercise, meditation Estimated Date of D/C: 06/18/18
--- NOTE | 2018-06-17 08:55 | PCM.PYCHPN ---
Psychiatric Progress Note - Psychiatric Progress Note Patient seen today, length of contact: 15 min Patient Chief Complaint: "Depressed" Problems Identified/Issues Discussed: The pt is seen, chart reviewed, case discussed with staff. The pt is compliant with medications and reports no side-effects. Symptoms are improving but needs more time to stabilize. He tends to isolate self Pt attends some groups and activities. Support given, psycho-education provided. After care discussed. He wants rehab [employer] suggested [facility] his personality d/o but our SW couldn't go anywhere with that b/c they don't have beds. Medication Change: Yes (Adjust meds) Medical Record Reviewed: Yes Mental Status Examination - Cognitive Function Orientation: Person, Place, Situation, Time Memory: Intact Attention: Poor Concentration: Poor Association: WNL Fund of Knowledge: WNL - Mood Mood: Depressed - Affect Affect: Constricted - Speech Speech: Appropriate - Formal Thought Process Formal Thought Process: No Impairment - Suicidal Ideation Suicidal Ideation: No - Homicidal Ideation Homicidal Ideation: No Goal/Treatment Plan - Goal/Treatment Plan Need for Continued Stay: Discharge may exacerbated symptoms, Severe functional impairment Progress Toward Problem(s) and Goals/Treatment Plan: Prozac for depression and anxiety As need medications All risks, benefits and alternatives of the meds discussed, and the pt agreed and understood. Attend groups and activities Individual therapy daily Psychoeducation and support daily Encourage compliance with meds and after care Refer to outpatient program Teach healthy lifestyle methods, i.e. diet, exercise, meditation
[2018-06-17] MEDS: Pantoprazole 40 mg EC Tab PO SCH (10:18)
[2018-06-18] MEDS: Pantoprazole 40 mg EC Tab PO SCH (09:01)
--- NOTE | 2018-06-18 14:49 | PCM.PYCHPN ---
Psychiatric Progress Note - Psychiatric Progress Note Patient seen today, length of contact: 15 min Patient Chief Complaint: "I am a little better" Problems Identified/Issues Discussed: The pt is seen, chart reviewed, case discussed with staff. Support and psychoeducation given, CBT and WA used briefly No new symptoms reported, improving slowly and needs more time No SEs from medications, risks discussed. After care discussed - Will go to [facility] Medication Change: Yes (Adjust meds) Medical Record Reviewed: Yes Mental Status Examination - Cognitive Function Orientation: Person, Place, Situation, Time Memory: Intact Attention: Poor Concentration: Poor Association: WNL Fund of Knowledge: WNL - Mood Mood: Depressed - Affect Affect: Constricted - Speech Speech: Appropriate - Formal Thought Process Formal Thought Process: No Impairment - Suicidal Ideation Suicidal Ideation: No - Homicidal Ideation Homicidal Ideation: No Goal/Treatment Plan - Goal/Treatment Plan Need for Continued Stay: Discharge may exacerbated symptoms, Severe functional impairment Progress Toward Problem(s) and Goals/Treatment Plan: Prozac for depression and anxiety - dose increased As need medications All risks, benefits and alternatives of the meds discussed, and the pt agreed and understood. Attend groups and activities Individual therapy daily Psychoeducation and support daily Encourage compliance with meds and after care Refer to outpatient program Teach healthy lifestyle methods, i.e. diet, exercise, meditation Estimated Date of D/C: 06/19/18 If changed, why: Accepted for tomorrow
[2018-06-19 06:21] VITALS: BP 125/68; PULSE 90; RESP 20; TEMP 98.2; O2SAT 97
--- NOTE | 2018-06-19 09:00 | PCM.PYCHDC ---
Mental Status Examination - Mental Status Examination Orientation: Person Discharge Summary - Discharge Note Consultations:: List each consultation separately and include: 1. Reason for request. 2. Findings. 3. Follow-up Summary of Hospital Course include:: 1. Description of specific treatment plan utilized for patients during their course of treatmen. 2. Summarize the time- course for resolution of acute symptoms and/or regressed behaviors. 3. Describe issues identified and worked on during hospitalization. 4. Describe medication utilized. 5. Describe medical problems identified and treated. 6. Reassessment of suicide risk Summary of Hospital Course: Patient seen, chart reviewed, case discussed. Consult was requested for his suicide attempt. The patient is a 27-year-old single, homeless, [place], unemployed male with no children. The patient was released from [facility] and missed transportation with [employer] to go to [facility] in [place] It made the patient feel like he had no desire to live anymore. Yesterday, after discharge, the patient used 5 boxes of store-bought cough syrup at 1 pm to kill himself. He did not have seizures or complications so far. He says he has extremely negative self-worth and hates himself. Denies psychotic or manic sxs. He has hx of traumas and PTSD sxs. The patient has a history of sniffing 3 grams of cocaine per day and 1 liter of alcohol per day. The patient has a history of polysubstance abuse, including ecstasy, marijuana, LSD and PCP, with his last use one month ago. The patient states that has attempted suicide 8 times in the past and has over 10 psychiatric related hospitalizations. The patient was previously seen in this hospital in the summer 2017 and was discharged to [facility] in [place]. Past Psych History: Depression, PTSD, Borderline personality Past Medical History: HTN, overweight Family Psych History: denies He went to [facility]. - Diagnosis (1) Dextromethorphan overdose Current Visit: Yes Status: Acute (2) Depression Current Visit: No Status: Acute - Final Diagnosis (DSM 5) Condition upon Discharge: STABLE Disposition: HOME/ ROUTINE Follow-up Treatment Plan: Prozac for depression and anxiety - dose increased As need medications All risks, benefits and alternatives of the meds discussed, and the pt agreed and understood. Attend groups and activities Individual therapy daily Psychoeducation and support daily Encourage compliance with meds and after care Refer to outpatient program Teach healthy lifestyle methods, i.e. diet, exercise, meditation Prescriptions/Medication Reconciliation: amLODIPine [Norvasc] 5 mg PO DAILY #30 tab FLUoxetine [Prozac] 40 mg PO DAILY #30 cap Lisinopril [Zestril] 20 mg PO DAILY #30 tab Pantoprazole [Protonix EC Tab] 40 mg PO DAILY #30 ect traZODone [Desyrel] 100 mg PO HS #30 tab
[2018-06-19] MEDS: Pantoprazole 40 mg EC Tab PO SCH (10:15)
== END 2018-06-19 07:30 | disposition home or self-care (01) | DRG 449 ==
LOC: C.ER 15:41 → UNDOADMIN 23:16 → C.9I 23:16 → C.9E 23:46 → UNDOADMIN 23:46 → C.9I 23:46 → C.9E 06-12 02:09 → C.9I 06-12 02:09 → UNDOADMIN 06-12 16:23 → C.9I 06-12 16:23 → UNDODISIN 06-12 17:14 → C.9I 06-12 17:19 → C.5E 06-12 17:19 → C.9E 06-12 17:26 → C.5E 06-12 17:33 → C.9I 06-12 17:33
PROVIDERS: ADMIT Psychiatry & Neurology Psychiatry; ATTEND Psychiatry & Neurology Psychiatry
PROC: GZHZZZZ Group Psychotherapy (ICD-10-PCS; principal; 2018-06-11)
PROC: HZ52ZZZ Individual Psychotherapy for Substance Abuse Treatment, Cognitive-Behavioral (ICD-10-PCS; 2018-06-11)
PROC: HZ59ZZZ Individual Psychotherapy for Substance Abuse Treatment, Supportive (ICD-10-PCS; 2018-06-11)
PROC: HZ56ZZZ Individual Psychotherapy for Substance Abuse Treatment, Psychoeducation (ICD-10-PCS; 2018-06-11)
PROC: HZ42ZZZ Group Counseling for Substance Abuse Treatment, Cognitive-Behavioral (ICD-10-PCS; 2018-06-11)
PROC: HZ46ZZZ Group Counseling for Substance Abuse Treatment, Psychoeducation (ICD-10-PCS; 2018-06-11)
PROC: GZ58ZZZ Individual Psychotherapy, Cognitive-Behavioral (ICD-10-PCS; 2018-06-11)
PROC: GZ56ZZZ Individual Psychotherapy, Supportive (ICD-10-PCS; 2018-06-11)
DX: T45.0X2A Poisoning by antiallergic and antiemetic drugs, intentional self-harm, initial encounter (principal); F14.20 Cocaine dependence, uncomplicated; F33.2 Major depressive disorder, recurrent severe without psychotic features; R10.9 Unspecified abdominal pain; Z91.5 Personal history of self-harm; F43.10 Post-traumatic stress disorder, unspecified; I10 Essential (primary) hypertension; F60.3 Borderline personality disorder; F17.210 Nicotine dependence, cigarettes, uncomplicated; Z59.0 Homelessness; Z91.14 Patient's other noncompliance with medication regimen; Z81.8 Family history of other mental and behavioral disorders